=== PATIENT | female | born 2005 | race Caucasian/White ===

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

== ENCOUNTER 2024-08-04 01:27 | Emergency (ER) | payer OTHER, SELFPAY ==
[2024-08-04 01:27] VITALS: BP 111/47; PULSE 93; RESP 16; TEMP 36.1; O2SAT 100; BMI 17.2
--- NOTE | 2024-08-04 01:44 | EDS_ITS ---
HPI HPI - Female History of Present Illness Chief Complaint: Female C/O Informant: patient and parent Narrative Narrative: 18-year-old female healthy 1-2 days of intensely pruritic vaginal discomfort with some white discharge. Seen in urgent care and diagnosed clinically with a yeast infection I did not examine her and took some swabs for GC, chlamydia as she had been sexually active, and something else that they are unsure of. Pr esents tonight because it is just very itchy and she wants to know if she can do something for the itching. The prescription that was written will not be available for 2 more days because it is a holiday weekend. No recent antibiotics for anything. [facility] Medical History Acute sinusitis, unspecified URI (upper respiratory infection) Acute pharyngitis, unspecified Acute sinusitis, unspecified URI (upper respiratory infection) Home Medications ?Medication ?Instructions ?Recorded ?Last Taken ?Type miconazole nitrate 2 % vaginal 1 appful vaginal QHS 7 days #45 08/04/24 Unknown Rx cream (Miconazole-7) grams norgestimate 0.25 mg-ethinyl 1 tab PO DAILY 08/04/24 Unknown History estradiol 35 mcg tablet (Cherokee-Linyah) Allergy/AdvReac Type Severity Reaction Status Date / Time No Known Allergies Allergy Verified 08/04/24 01:28 Social History Smoking Status: Never smoker substance use type: does not use ROS ROS ED Constitutional Constitutional ED: Denies chills or fever(s) Genitourinary Genitourinary ED: Reports as per HPI and vaginal discharge; Denies dysuria, hematuria or vaginal bleeding EXAM Physical Exam Const Vital Signs: 08/04/24 01:27 Temperature 97 F L Temperature Source Temporal Pulse Rate 93 Respiratory Rate 16 Blood Pressure 111/47 L Blood Pressure Mean 68 Pulse Ox 100 Positive well nourished and well developed General Appearance ED: well developed and NAD Neck supple Resp normal respiratory effort GI normal to inspection, nondistended, normoactive bowel sounds, soft to palpation and non-tender Narrative: Nontender labia, normal-appearing external genitalia, no edema. No rash or lesions, rash the patient was referring to is in fact white discharge. Speculum Exam - Vagina: vaginal discharge white (Heterogeneous); Negative for vaginal bleeding Extremity normal to inspection and full ROM Neuro oriented x3 and CN's II-XII intact bilaterally Motor Exam: strength 5/5 throughout Psych mental status grossly normal Skin no rashes or lesions noted and no wounds MDM MDM MDM Narrative Medical decision making narrative: Exam is consistent with vaginal candidiasis. Prescription written. Patient and mother aware that these treatments are also available [id number]. Discharge Plan Triage Chief Complaint: Female C/O ED Provider: Lucian Roger Dx/Rx/DC Orders Clinical Impression: Candidiasis of vagina Instructions: ED LUZ VAGINITIS Prescriptions: New miconazole nitrate [Miconazole-7] 2 % cream 1 appful vaginal QHS 7 Days Qty: 45 0RF No Action norgestimate-ethinyl estradiol [Cherokee-Linyah] 0.25-35 mg-mcg tablet 1 tab PO DAILY Primary Care Provider: Mary Cheung Referrals: Maribell Galdamez MD [Med Staff - Active Staff] - 1 Week if not improving Mary Cheung MD [Primary Care Provider] - Print Language: Persian Disposition Disposition: Home, Self Care
[2024-08-04] MEDS: DiphenhydrAMINE 25 MG Capsule 50 MG PO (01:59)
== END 2024-08-04 02:09 | disposition home or self-care (01) ==
LOC: ED 01:57
PROVIDERS: Emergency Provider Emergency Medicine; PCP Pediatrics; Visit Provider Emergency Medicine
DX: B37.31 Acute candidiasis of vulva and vagina (principal)
CPT/HCPCS: 99282

== ENCOUNTER → 2025-02-04 | Outpatient (CLI) | payer SELFPAY | END | disposition home or self-care (01) | LOC: LABSPEC 15:07 | PROVIDERS: PCP Pediatrics; Referring Provider Dentist Oral and Maxillofacial Surgery; Visit Provider Dentist Oral and Maxillofacial Surgery | DX: T81.49XA Infection following a procedure, other surgical site, initial encounter (principal) | CPT/HCPCS: 87070; 87075; 87077; 87205 ==

== ENCOUNTER 2025-07-04 09:42 | Emergency (ER) | payer BC, SELFPAY ==
[2025-07-04 09:42] VITALS: BP 108/82; PULSE 96; RESP 16; TEMP 36.7; O2SAT 100; BMI 16.9
--- NOTE | 2025-07-04 10:07 | ED.VIS.GI ---
HPI HPI - GI History of Present Illness Chief Complaint: Abd Pain Narrative Narrative: Patient is a 19-year-old female presenting to the emergency department for left lower quadrant pain and constipation for the past 4 to 5 months. Patient states that the pain is unchanged and she had a bowel movement 2 days ago. States that she had an x-ray done when the pain started 4 to 5 months ago that showed constipation and was started on a bowel regimen including MiraLAX and Dulcolax daily. She stopped doing this over the past few weeks because she developed a yeast infection and thought it was due to this. States that since then the left lower quadrant abdominal pain has continued. Denies fever, chills, nausea or vomiting here. States that she had a small episode of emesis this morning but was able to drink afterwards. Denies any dysuria or hematuria. She is on her menstrual cycle at this time. She denies any abnormal vaginal bleeding or discharge. Denies the pain changing in type or pain scale since it started months ago. [facility] Medical History Contact with or exposure to other viral diseases Low back pain Abdominal pain Acute sinusitis, unspecified URI (upper respiratory infection) Acute pharyngitis, unspecified Acute sinusitis, unspecified URI (upper respiratory infection) Home Medications ?Medication ?Instructions ?Recorded ?Last Taken ?Type miconazole nitrate 2 % vaginal 1 appful vaginal QHS 7 days #45 08/04/24 Unknown Rx cream (Miconazole-7) grams norgestimate 0.25 mg-ethinyl 1 tab PO DAILY 08/04/24 Unknown History estradiol 0.035 mg tablet (Costilla-Linyah) Allergy/AdvReac Type Severity Reaction Status Date / Time No Known Allergies Allergy Verified 07/04/25 09:42 Social History Smoking Status: Never smoker substance use type: does not use ROS ROS ED ROS Narrative see HPI EXAM Physical Exam Narrative Exam Narrative: Vital signs: Reviewed General: Alert and orientedx3. No acute distress HEENT: Head is normocephalic and atraumatic, sinuses nontender, pupils equal round and reactive. Nares are patent. Oropharynx and throat exams normal. Neck: Supple without lymphadenopathy nontender Cardiovascular: Regular rate and rhythm, no murmurs. No rubs or gallops. Normal S1 and S2 Respiratory: Clear to auscultation bilaterally. No wheezes, rales, rhonchi Abdominal: Soft and nontender to palpation. Normal bowel sounds. No guarding or rebound. Nonsurgical abdomen Extremities: No tenderness. No bruising. Normal range of motion. Normal sensation. Skin: No rash or redness. The rest of the physical exam is unremarkable Const Vital Signs: 07/04/25 09:42 Temperature 98.1 F Temperature Source Oral Pulse Rate 96 Respiratory Rate 16 Blood Pressure 108/82 H Blood Pressure Mean 90 Pulse Ox 100 Oxygen Delivery Method Room Air MDM MDM MDM Narrative Medical decision making narrative: Patient is a 19-year-old female presenting to the emergency department for 4 to 5 months of constipation and left lower quadrant abdominal pain. Patient was seen and examined. Vitals are stable. Patient resting bed comfortably no acute distress. Given the pain and constipation has been present for 4 to 5-month I do not think the patient requires a CT at this time. The pain does not change in severity or type. Given it has been months of pain I do not think this is ovarian in pathology including ovarian torsion. She is currently on her menstrual cycle do not think this is related including ectopic. She has had no fevers and is having no active nausea or vomiting. Was able to tolerate p.o. this morning. Discussed bowel regimens extensively at bedside with patient and mother. Recommended mag citrate at home if she has been trying MiraLAX and Dulcolax. She did just have a bowel movement to days ago and is still passing gas I do not think she has an obstruction. Abdominal exam is unremarkable. Also recommended either suppository or enema at home if she does not have a bowel movement after the mag citrate. I did offer her a CT given her 1 episode of emesis this morning however low concern for any intra-abdominal pathology other than constipation. Patient and mother would like to try the at home measures first and if she develops any new or worsening symptoms they will return. Patient discharged from the Emergency Department. I do not feel that the patient's evaluation reveals any acute reason for admission at this time. I instructed them to either follow-up with their primary care physician or promptly return to the Emergency Department for reevaluation should symptoms worsen or new symptoms develop. I explained what symptoms would indicate the need to return to the emergency department. Shared decision making was used. The patient voiced understanding of the treatment plan and is agreeable with it. Clinical impression: LLQ abdominal pain constipation History & Record Review Discussion w/independent historian: Patient and Family Discharge Plan Triage Chief Complaint: Abd Pain ED Provider: Marina Monk Dx/Rx/DC Orders Prescriptions: No Action norgestimate-ethinyl estradiol [Costilla-Linyah] 0.25-35 mg-mcg tablet 1 tab PO DAILY miconazole nitrate [Miconazole-7] 2 % cream 1 appful vaginal QHS 7 Days Qty: 45 0RF Primary Care Provider: Mary Cheung Referrals: Mary Cheung MD [Primary Care Provider, Pediatrics] Print Language: German
[2025-07-04 10:39] VITALS: BP 110/70; PULSE 86; RESP 12; TEMP 36.8; O2SAT 99
== END 2025-07-04 10:40 | disposition home or self-care (01) ==
LOC: ED 10:22
PROVIDERS: Emergency Provider Student in an Organized Health Care Education/Training Program; PCP Pediatrics; Visit Provider Student in an Organized Health Care Education/Training Program
DX: R10.32 Left lower quadrant pain (principal); K59.00 Constipation, unspecified; R11.10 Vomiting, unspecified
CPT/HCPCS: 99282

== ENCOUNTER 2025-08-12 22:27 | Emergency (ER) | payer BC, SELFPAY ==
[2025-08-12 22:28] VITALS: BP 111/77; PULSE 77; RESP 13; TEMP 36.4; O2SAT 100; BMI 17.1
--- OUTSIDE RECORDS SUMMARY | 2025-08-12 22:55 | XMS RPT_ITS | CCD ---
Author Organization [facility] Inform ion [facility] Care Team Providers Care Chief Revenue Officer Name Role Phone Mary Cheung Primary Care Provider STEVEN Norton Attending Provider Jonatan HILARIO, Mary Primary Care Provider Jonatan HILARIO, Mary Primary Care Provider STEVEN Shen Attending Provider [phone] [place] DIE SET UP WORKER, DIE SET UP WORKER-Singh Rodriguez Attending Provider Jonatan HILARIO, Mary Primary Care Provider Dr. Mary Cheung MD Primary Care Provider Dr. Mary Cheung MD Referring Provider John Norton Attending Provider STEVO BOND MD Attending Provider STEVO BOND MD Referring Provider JONATAN, MARY Primary Care Unavailable JONATAN, MARY Primary Care Unavailable JONATAN, MARY Primary Care Unavailable JONATAN, MARY Primary Care Unavailable CAREY TOLBERT Attending Unavailable SEIFRIED, MARY Referring Unavailable JONATAN, MARY Primary Care Unavailable MARY LEMUS Attending Unavailable JONATAN, MARY Primary Care Unavailable SELF Referring Unavailable Jonatan, Mary Primary Care Unavailable STEVO BOND Referring Unavailable STEVO BOND Attending Unavailable Jonatan, Mary Primary Care Unavailable Marina Monk Attending Unavailable Jonatan, Mary Primary Care Unavailable Lucian Roger Attending Unavailable Jonatan, Mary Referring Unavailable Jonatan, Mary Primary Care Unavailable Dustin Shen Attending Unavailable Jonatan, Mary Referring Unavailable Jonatan, Mary Primary Care Unavailable John Norton Attending Unavailable Medications Current Medications Medication Drug Class(es) Dates Sig (Normalized) Sig (Original) benzoyl peroxide 50 mg/ml medicated liquid soap (14 sources) Start: 03-18-2016 Benzoyl Peroxide 5 % external wash Apply 1 application to affected area every morning. 1 Bottle 5 03/18/2016 Active Comment on above: Apply 1 application to affected area every morning. Ethinyl Estradiol / norgestimate (6 sources) Progestin, Estrogen Start: 08-23-2024 take 1 tablet by mouth once daily SPRINTEC 0.25-35 mg-mcg per tablet Take 1 tablet by mouth once daily. 08/23/2024 Active Start: 08-04-2024 Norgestimate-E thinyl Estradiol (Boyd-Linyah) 0.25-35 mg-mcg tablet Active 1 {tbl} PO DAILY August 04, 2024 1:00am fluconazole 150 mg oral tablet (2 sources) Azole Antifungal Start: 05-06-2025 End: 05-06-2025 take 1 tablet by mouth once fluconazole (DIFLUCAN) 150 mg tablet Take 1 tablet by mouth one time only for 1 dose. 1 tablet 05/06/2025 05/06/2025 Active Start: 08-25-2024 End: 08-25-2024 fluconazole (DIFLUCAN) 150 m g tablet Take 1 tablet by mouth one time only for 1 dose. , repeat dose in 3 days. 2 tablet 08/25/2024 08/25/2024 Active miconazole nitrate 20 mg/ml vaginal cream (3 sources) Azole Antifungal Start: 08-04-2024 Miconazole Ni trate (Miconazole-7) 2 % cream Active 1 NMA VAGINAL AT BEDTIME 45 7 August 04, 2024 1:00am Start: 08-03-2024 End: 08-06-2024 Miconazole Nitrate (MONISTAT 3) 200 mg/5 gram (4 %) crea Indications: Vaginal discharge Use 1 Applicator vaginally once daily for 3 days. 25 g 08/03/2024 08/06/2024 Active tretinoin 1 mg/ml topical cream (14 sources) Retinoid Start: 03-14-2016 tretinoin (RET IN-A) 0.1 % cream Indications: Acne, unspecified acne type Apply 1 application to affected area daily at bedtime. 60 g 3 03/14/2016 Active Comment on above: Apply 1 application to affected area daily at bedtime. Completed/Discontinued Medications Medication Drug Class(es) Dates Sig (Normalized) Sig (Original) amoxicillin 500 mg oral tablet (13 sources) Penicillin-class Antibacterial Start: 04-22-2024 End: 06-10-2024 take 1 tablet by mouth three times daily Amoxicillin 500 mg tablet Discontinued 500 mg PO THREE TIMES A DAY April 22, 2024 12:00am June 10, 2024 10:33am Start: 10-12-2020 End: 10-22-2020 take 1 capsule by mouth three times daily Amoxicillin 500 mg capsule Discontinued 500 mg PO THREE TIMES A DAY 30 October 12, 2020 1:00am October 21, 2020 1:00am October 22, 2020 1:03am Start: 10-13-2019 End: 10-23-2019 take 1000 mg by mouth twice daily Amoxicillin 400 mg/5 mL suspension for reconstitution Discontinued 1000 mg PO TWICE A DAY 250 October 13, 2019 1:00am October 22, 2019 1:00am October 23, 2019 1:08am Start: 12-19-2018 End: 12-29-2018 take 800 mg by mouth twice daily Amoxicillin 400 mg/5 mL suspension for reconstitution Discontinued 800 mg PO TWICE A DAY 200 December 19, 2018 12:00am December 28, 2018 12:00am December 29, 2018 12:09am amoxicillin 80 mg/ml / clavulanate 11.4 mg/ml oral suspension (3 sources) Penicillin-class Antibacterial Start: 11-14-2022 End: 11-24-2022 take 1 mL by mouth every twelve hours Amoxicillin-Pot Clavulanate 400-57 mg/5 mL suspension for reconstitution Discontinued 10 mL PO Q12H 200 November 14, 2022 12:00am November 23, 2022 12:00am November 24, 2022 12:05am Start: 11-14-2022 End: 11-24-2022 take 1 mL by mouth every twelve hours Amoxicillin-Pot Clavulanate Discontinued 10 ML PO Q12H 200 November 14, 2022 12:00am November 24, 2022 12:05am azithromycin 40 mg/ml oral suspension (4 sources) Macrolide Antimicrobial Start: 05-04-2021 End: 05-09-2021 Azithromycin 200 mg/5 mL suspension for reconstitution Discontinued 0 PO .COMPLEX 60 May 04, 2021 12:00am May 08, 2021 12:00am May 09, 2021 12:01am take 12.5 mL (500 mg) by mouth today (day 1), then 6.25 mL (250 mg) daily for 4 days (days 2-5) PO benzonatate 100 mg oral capsule (4 sources) Non-narcotic Antitussive Start: 05-04-2021 End: 04-02-2022 take 1 capsule by mouth three times daily as needed for cough Benzonatate 100 mg capsule Discontinued 100 mg PO THREE TIMES A DAY as needed for cough May 04, 2021 12:00am April 02, 2022 12:41pm cephalexin 50 mg/ml oral suspension (4 sources) Cephalosporin Antibacterial Start: 04-15-2020 End: 04-25-2020 take 500 mg by mouth twice daily Cephalexin 250 mg/5 mL suspension for reconstitution Discontinued 500 mg PO TWICE A DAY 200 April 15, 2020 12:00am April 24, 2020 12:00am April 25, 2020 12:02am hydrocortisone 10 mg/ml / neomycin 3.5 mg/ml / polymyxin b 39712 unt/ml otic suspension (3 sources) Aminoglycoside Antibacterial, Polymyxin-class Antibacterial, Corticosteroid Start: 04-14-2023 End: 04-24-2023 Neomycin-Polymyxin- Hc 3.5-10,000-1 mg/mL-unit/mL-% drops,suspension Discontinued 3 NMA OTIC Q4H 06 13April 14, 2023 12:00am April 23, 2023 12:00am April 24, 2023 12:03am apply to (cotton) wick; replace wick every 24 hours Start: 04-14-2023 Neomycin-Polym yxin-Hc Active 3 DRP OTIC Q4H 06 13April 14, 2023 12:00am apply to (cotton) wick; replace wick every 24 hours methylPREDNISolone 4 mg oral tablet (4 sources) Corticosteroid Start: 06-10-2024 End: 06-16-2024 take 1 tablet by mouth once Methylprednisolone (Medrol (Bruno)) 4 mg tablets,dose pack Discontinued 4 mg PO per package directions 22 02June 10, 2024 12:00am June 15, 2024 12:00am June 16, 2024 12:09am Start: 11-30-2022 End: 12-15-2022 take 1 tablet by mouth once Methylprednisolone (Medrol (Bruno)) 4 mg tablets,dose pack Discontinued 0 PO per package directions November 30, 2022 12:00am December 15, 2022 7:54am PO PER PKG DIR nitrofurantoin, macrocrystals 25 mg / nitrofurantoin, monohydrate 75 mg oral capsule (10 sources) Nitrofuran Antibacterial Start: 04-14-2023 End: 04-16-2023 take 1 capsule by mouth every twelve hours at mealtime Nitrofurantoin Monohyd/M-Cryst 100 mg capsule Discontinued 1 NMA PO Q12H 14 April 14, 2023 12:00am April 20, 2023 12:00am April 16, 2023 11:43am administer with a meal/food; swallow whole; do not open, crush, dissolve , or chew Start: 12-15-2022 End: 12-22-2022 take 1 capsule by mouth every twelve hours at mealtime Nitrofurantoin Monohyd/M-Cryst 100 mg capsule Discontinued 1 NMA PO Q12H 14 December 15, 2022 12:00am December 21, 2022 12:00am December 22, 2022 12:05am administer with a meal/food; swallow whole; do not open, crush, dissolve , or chew Start: 04-15-2020 End: 04-22-2020 take 1 capsule by mouth every twelve hours at mealtime Nitrofurantoin Monohyd/M-Cryst 100 mg capsule Discontinued 1 NMA PO Q12H 14 April 15, 2020 12:00am April 21, 2020 12:00am April 22, 2020 12:02am administer with a meal/food; swallow whole; do not open, crush, dissolve , or chew ofloxacin 3 mg/ml ophthalmic solution (3 sources) Quinolone Antimicrobial Start: 04-02-2022 End: 08-06-2022 Ofloxacin 0.3 % drops Discontinued 0 OPHTHALMIC .COMPLEX April 02, 2022 12:00am August 06, 2022 2:12pm put 1-2 drps into affected eye(s) every 2-4 h x 2 days, then 1-2 drps 4 times/day days 3-7 ophthalmic (eye) Start: 04-02-2022 End: 08-06-2022 Ofloxacin Discontinued 0 OPH THALMIC .COMPLEX April 02, 2022 12:00am August 06, 2022 2:12pm put 1-2 drps into affected eye(s) every 2-4 h x 2 days, then 1-2 drps 4 times/day days 3-7 ophthalmic (eye) phenazopyridine hydrochloride 100 mg oral tablet (6 sources) Start: 12-15-2022 End: 04-22-2024 take 1 tablet by mouth three times daily at mealtime for pain Phenazopyridine (Pyridium) 100 mg tablet Discontinued 100 mg PO THREE TIMES A DAY as needed for pain 7 April 14, 2023 12:00am April 22, 2024 7:43am administer with a full glass of water after each meal sulfamethoxazole 800 mg / trimethoprim 160 mg oral tablet (3 sources) Dihydrofolate Reductase Inhibitor Antibacterial, Sulfonamide Antimicrobial Start: 04-16-2023 End: 04-19-2023 Sulfamethoxazole-Tr imethoprim (Bactrim Ds) 800-160 mg tablet Discontinued 1 {tbl} PO TWICE A DAY 6 3 April 16, 2023 12:00am April 18, 2023 12:00am April 19, 2023 12:04am triamcinolone acetonide 0.055 mg/actuat metered dose nasal spray (1 source) Corticosteroid Start: 06-10-2024 End: 08-04-2024 Triamcinolone Acetonide (Nasacort) 55 mcg aerosol,spray Discontinued 2 NMA INTRANASAL daily 16.9 June 10, 2024 12:00am August 04, 2024 2:28am administer into each nostril Problems Active Problems Problem Classification Problem Date Documented Da te Episodic/Chronic Abdominal pain (3 sources) Abdominal pain; Translations: [Unspecified abdominal pain] Onset: 07-15-2025 10-16-2024 Episodic Acute bronchitis (4 sources) Acute bronchitis; Translations: [Acute bronchitis, unspecified] 05-04-2021 Episodic Administrative/social admission (1 source) Patient encounter status; Translations: [Encounter for pre-employment examination] 07-19-2024 Episodic Cardiac dysrhythmias (2 sources) Palpitations; Translations: [Palpitations] 04-20-2023 Episodic Genitourinary symptoms and ill-defined conditions (9 sources) Dysuria; Translations: [Dysuria] Onset: 05-06-2025 04-14-2023 Episodic Immunizations and screening for infectious disease (7 sources) Contact with and (suspected) exposure to other viral communicable diseases; Translations: [Contact with or suspected exposure to other viral communicable disease] Episodic Inflammation; infection of eye (except that caused by tuberculosis or sexually transmitteddisease) (3 sources) Internal hordeolum; Translations: [Hordeolum internum left eye, unspecified eyelid] 04-02-2022 Episodic Inflammatory diseases of female pelvic organs (1 source) Acute vaginitis; Translations: [Acute vaginitis] 08-25-2024 Episodic Mycoses (1 source) Candidiasis of vagina; Translations: [Candidiasis of vagina] 08-12-2024 Episodic Nonspecific chest pain (3 sources) Chest pain; Translations: [Chest pain, unspecified] 04-20-2023 Episodic Other ear and sense organ disorders (3 sources) Pain of ear structure; Translations: [Otalgia, bilateral] 11-30-2022 Episodic Other female genital disorders (1 source) Vaginal discharge; Translations: [Other specified noninflammatory disorders of vagina] 08-03-2024 Episodic Other female genital disorders (1 source) Pruritus of vagina; Translations: [Other specified noninflammatory disorders of vagina] 05-06-2025 Episodic Other gastrointestinal disorders (1 source) Constipation - functional; Translations: [Chronic idiopathic constipation] 05-01-2025 Chronic Other gastrointestinal disorders (1 source) Chronic idiopathic constipation; Translations: [Functional constipation] Onset: 05-01-2025 Chronic Other upper respiratory infections (20 sources) Acute frontal sinusitis; Translations: [Acute frontal sinusitis, unspecified] Episodic Otitis media and related conditions (8 sources) Otitis media; Translations: [Otitis media, unspecified, unspecified ear] 10-13-2019 Episodic Spondylosis; intervertebral disc disorders; other back problems (2 sources) Low back pain; Translations: [Low back pain] 10-16-2024 Episodic Urinary tract infections (4 sources) Urinary tract infectious disease; Translations: [Urinary tract infection, site not specified] 04-15-2020 Episodic Viral infection (1 source) Viral disease; Translations: [Viral infection, unspecified] 10-18-2024 Episodic Past or Other Problems Problem Classification Problem Date Documented Date Episodic/Chronic Attention-deficit, conduct, and disruptive behavior disorders (10 sources) Attention deficit hyperactivity disorder; Translations: [Attention-deficit hyperactivity disorder, unspecified type] Onset: 05-15-2013 Resolved: 12-03-2015 12-03-2015 Chronic Complications of surgical procedures or medical care (1 source) Infection following a procedure, other surgical site, initial encounter; Translations: [Infection following a procedure, other surgical site, initial encounter] Onset: 02-08-2025 Episodic Other female genital disorders (2 sources) Other specified noninflammatory disorders of vagina; Translations: [Vaginal itching] Onset: 09-05-2024 Episodic Residual codes; unclassified (1 source) Pain, unspecified; Translations: [Pain, unspecified] Onset: 10-16-2024 Episodic Results Test Name Value Interpretation Reference Range Facility Emergency Department Summary on 07-04-2025 Emergency Department Summary [facility] Medical Records Department [address] [place] [address] Emergency Department Summary 07/04/25 MR#: [id number] Acct: [id number] Name: NANCY DALEY Rep #: [id number] : 2005 19 From: Marina Monk MD PCP: Dr. Mary Cheung MD Status:PRE ER Location: ED HPI HPI - GI History of Present Illness Chief Complaint: Abd Pain Narrative Narrative: Patient is a 19-year-old female presenting to the emergency department for left lower quadrant pain and constipation for the past 4 to 5 months. Patient states that the pain is unchanged and she had a bowel movement 2 days ago. States that she had an x-ray done when the pain started 4 to 5 months ago that showed constipation and was started on a bowel regimen including MiraLAX and Dulcolax daily. She stopped doing this over the past few weeks because she developed a yeast infection and thought it was due to this. States that since then the left lower quadrant abdominal pain has continued. Denies fever, chills, nausea or vomiting here. States that she had a small episode of emesis this morning but was able to drink afterwards. Denies any dysuria or hematuria. She is on her menstrual cycle at this time. She denies any abnormal vaginal bleeding or discharge. Denies the pain changing in type or pain scale since it started months ago. [facility] Medical History Contact with or exposure to other viral diseases Low back pain Abdominal pain Acute sinusitis, unspecified URI (upper respiratory infection) Acute pharyngitis, unspecified Acute sinusitis, unspecified URI (upper respiratory infection) Home Medications ???Medication ???Instructions ???Recorded ???Last Taken ???Type miconazole nitrate 2 % vaginal 1 appful vaginal QHS 7 days #45 Unknown Rx cream (Miconazole-7) grams norgestimate 0.25 mg-ethinyl 1 tab PO DAILY 08/04/24 Unknown Hi story estradiol 0.035 mg tablet (Boyd-Linyah) Allergy/AdvReac Type Severity Reaction Status Date / Time No Known Allergies Allergy Verified 07/04/25 09:42 Social History Smoking Status: Never smoker substance use type: does not use ROS ROS ED ROS Narrative see HPI EXAM Physical Exam Narrative Exam Narrative: Vital signs: Reviewed General: Alert and orientedx3. No acute distress HEENT: Head is normocephalic and atraumatic, sinuses nontender, pupils equal round and reactive. Nares are patent. Oropharynx and throat exams normal. Neck: Supple without lymphadenopathy nontender Cardiovascular: Regular rate and rhythm, no murmurs. No rubs or gallops. Normal S1 and S2 Respiratory: Clear to auscultation bilaterally. No wheezes, rales, rhonchi Abdominal: Soft and nontender to palpation. Normal bowel sounds. No guarding or rebound. Nonsurgical abdomen Extremities: No tenderness. No bruising. Normal range of motion. Normal sensation. Skin: No rash or redness. The rest of the physical exam is unremarkable Const Vital Signs: 07/04/25 09:42 Temperature 98.1 F Temperature Source Oral Pulse Rate 96 Respiratory Rate 16 Blood Pressure 108/82 H Blood Pressure Mean 90 Pulse Ox 100 Oxygen Delivery Method Room Air MDM MDM MDM Narrative Medical decision making narrative: Patient is a 19-year-old female presenting to the emergency department for 4 to 5 months of constipation and left lower quadrant abdominal pain. Patient was seen and examined. Vitals are stable. Patient resting bed comfortably no acute distress. Given the pain and constipation has been present for 4 to 5-month I do not think the patient requires a CT at this time. The pain does not change in severity or type. Given it has been months of pain I do not think this is ovarian in pathology including ovarian torsion. She is currently on her menstrual cycle do not think this is related including ectopic. She has had no fevers and is having no active nausea or vomiting. Was able to tolerate p.o. this morning. Discussed bowel regimens extensively at bedside with patient and mother. Recommended mag citrate at home if she has been trying MiraLAX and Dulcolax. She did just have a bowel movement to days ago and is still passing gas I do not think she has an obstruction. Abdominal exam is unremarkable. Also recommended either suppository or enema at home if she does not have a bowel movement after the mag citrate. I did offer her a CT given her 1 episode of emesis this morning however low concern for any intra-abdominal pathology other than constipation. Patient and mother would like to try the at home measures first and if she develops any new or worsening symptoms they will return. Patient discharged from the Emergency Department. I do not f (more content not included)... Normal [facility] BACTERIAL VAGINOSIS NAATon 0 05-06-2025 Interpretation and review of laboratory results Normal [facility] Lactobacillus crispatus+gasseri+jenseni i + Gardnerella vaginalis + Atopobium vaginae rRNA SHAILA+probe Ql (Vag fld) Not detected Not detected [facility] Lactobacillus crispatus+gasseri+jenseni i + Gardnerella vaginalis + Atopobium vaginae rRNA SHAILA+probe Ql (Vag fld) Not detected Normal Not detected [facility] Comment on above: Order Comment: Speci men Type: SWABOrdering Facility: [facility] Address: [address] [place] [address] Performed By: #### C VTV, BVAMP ####[facility] LABCLIA [id number] [address] [place] Bacteria Ur Culton Bacteria identified Cx Nom (U) ORGANISM ID: 1 10,000 -<50,000 CFU/ml Normal urogenital aixa Normal [facility] Comment on above: Performed By: #### 6 30-4 ####[facility] LABCLIA [id number] [place] [address] [facility] [place] LUZ/TRICHOMONAS NAATon 0 05-06-2025 C. glabrata RNA SHAILA+probe Ql (Vag fld) Not detected Normal Not detected [facility] Comment on above: Order Comment: Speci men Type: SWABOrdering Facility: [facility] Address: [address] [place] [address] Performed By: #### C VTV, BVAMP ####[facility] LABCLIA [id number] [address] [place] Luz sp DNA SHAILA+probe Ql (Vag fld) Detected Abnormal Not detected [facility] Comment on above: Order Comment: Speci men Type: SWABOrdering Facility: [facility] Address: [address] [place] [address] Performed By: #### C VTV, BVAMP ####[facility] LABCLIA [id number] [address] [place] T. vaginalis DNA SHAILA+probe Ql (Unsp spec) Not detected Normal Not detected [facility] Comment on above: Order Comment: Speci men Type: SWABOrdering Facility: [facility] Address: [address] [place] [address] Performed By: #### C VTV, BVAMP ####[facility] LABCLIA [id number] [place] [address] [place] CNOVon 05-06-2025 CNOV Office Visit ([facility]) ---- NANCY DALEY ([id number]) 04 F UPA Date Time Provider Department 05/06/25 11:00 AM CAREY TOLBERT During your visit today, we recorded the following information about you: Temperature Pulse Respiration Blood pressure 98.8 degrees 110/minute 16/minute 102/60 Weight 37.8 kg Carey Tolbert APRN.CLOTH INSPECTOR 05/06/2025 11:24 AM Signed [facility] Subjective Nancy Daley is a 19 year old female. Patient presents with: Urinary Problem: burning with urination x this am, has had diarrhea, ? yeast also HPI The patient is a 19-year-old female presenting with dysuria and vulvar discomfort. Dysuria and Vulvar Discomfort: - Onset today. - Burning sensation during urination and while sitting. - Localized discomfort to the inside and possibly the opening of the vagina. - Noted redness; denies pruritus. - No discharge observed today. - Denies unprotected sexual intercourse. - History of yeast infection in August of last year, treated with Monistat. - Denies history of bacterial vaginosis. - Currently using Miralax for constipation management. Review of Systems Gastrointestinal: (+) constipation Genitourinary: (+) dysuria, (+) vaginal pruritus, (+) vulvar erythema, (-) vaginal discharge Objective BP 102/60 Pulse 110 Temp 37.1 ?C (98.8 ?F) Resp 16 Wt 37.8 kg (83 lb 5.3 oz) LMP 04/10/2025 (Approximate) SpO2 96% BMI 16.36 kg/m? Physical Exam General: No acute distress. Resp: Lungs clear to auscultation bilaterally. Abd: No tenderness to palpation. { 1. Burning with urination (R30.0) 2. Vaginal itching (N89.8) - Acute onset of dysuria and vaginal pruritus with erythema; no discharge noted today. - Previous similar episode diagnosed as yeast infection in August of last year. - No reported unprotected sexual activity; low risk for STDs. - Differential includes yeast infection, bacterial vaginosis, and UTI. - Urinalysis does not indicate UTI; urine culture ordered to confirm. - Vaginal swab obtained for yeast, bacterial vaginosis, and trichomonas testing. - Discussed differences in treatment for yeast infection vs. bacterial vaginosis; patient agreed to testing for both. - Start single-dose oral antifungal treatment. - Advised that if cultures are positive for bacterial vaginosis or other infections, appropriate antibiotics will be added. - Educated on potential causes of yeast infections and advised to seek RESEARCH AND DEVELOPMENT RESEARCHER evaluation if infections become more frequent. and Recording using Sympler software for draft documentation of the visit was discussed with the patient/authorized circulation sales representative; all questions welcomed and answered. Patient/authorized circulation sales representative agreed to proceed MDM Procedures Allergies As of Date: 05/06/2025 (No Known Allergies) Date Reviewed: 05/06/2025 Reviewed by: Mary Osman MA - Fully Assessed Reason for Visit: Urinary Problem [252] Cmt: burning with urination x this am, has had diarrhea, ? yeast also Primary Visit Diagnosis:Burning with urination [R30.0] Other Visit Diagnosis:Vaginal itching [N89.8] Order(s):UA DIP, URINE (POC) [5611229] Order #: [id number]. #:[id number] BACTERIAL CULTURE, URINE [SQURCUL] Order #: [id number]. #:[id number] BACTERIAL VAGINOSIS NAAT [SQBVAMP] Order #: [id number]. #:[id number] LUZ/TRICHOMONAS NAAT [SQCVTV] Order #: [id number]. #:[id number] fluconazole (DIFLUCAN) 150 mg tabletTake 1 tablet by mouth one time only for 1 dose.Disp: 1 tabletRfl: 0 Prescriptions as of 05/06/2025 - fluconazole (DIFLUCAN) 150 mg tablet Take 1 tablet by mouth one time only for 1 dose. - SPRINTEC 0.25-35 mg-mcg per tablet Take 1 tablet by mouth once daily. - Benzoyl Peroxide 5 % external wash Apply 1 application to affected area every morning. - tretinoin (RETIN-A) 0.1 % cream Apply 1 application to affected area daily at bedtime. Problem List As Of Date 05/06/2025 Noted Resolved ADHD (attention deficit hyperactivity disorder)* 3 12/03/2015 Prescriptions ordered this encounter Disp Refills Start End FLUCONAZOLE 150 MG TABLET 1 ta* 0 05/06/2025 05/06/2025 Route: PO Sig: Take 1 tablet by mouth one time only for 1 dose. Encounter Status:Closed by CAREY TOLBERT on 05/06/25 Normal [facility] UA DIP, URINE (POC)on 2024 BILIRUBIN UA (POCT) Moderate Abnormal Negative [facility] CLARITY UA (POCT) Slightly Cloudy Cl [facility] COLOR UA (POCT) Dark yellow [facility] GLUCOSE UA (POCT) Negative Negative mg/dL [facility] Hemoglobin Ql (U) Negative Negative [facility] Interpretation and review of laboratory results Abnormal [facility] KETONE UA (POCT) 80 mg/dL Abnormal Negative [facility] LEUKOCYTES UA (POCT) Negative Negative [facility] NITRITE UA (POCT) Negative Negative [facility] PH UA (POCT) 6.0 4.5 - 8.0 [facility] Protein Ql (U) 30 mg/dL Abnormal Negative [facility] SPECIFIC GRAVITY UA (POCT) >=1.030 1.005 - 1.030 [facility] UROBILINOGEN UA (POCT) 0.2 Qiana l E.U./dL [facility] Location:[address], [id number] [place] [address] POINT OF CARE [facility] CNOVon 05-01-2025 CNOV Office Visit (PEDSWS) ---- NANCY DALEY ([id number]) 3 F UPA Date Time Provider Department 05/01/25 10:00 AM MARY LEMUS During your visit today, we recorded the following information about you: Temperature Pulse Respiration Blood pressure 97.5 degrees 96/minute 16/minute 118/70 Weight Height Last Period 37.9 kg 1.52 m 04/10/25 Mary Lemus MD 05/23/2025 12:17 AM Signed PEDIATRIC SICK VISIT SUBJECTIVE: Nancy Daley is a 19 year old accompanied by mother. She has been having issues with constipation since December. She has been seen at the [facility]. Mother felt it this morning. She still hasn't gone normally. She went 2 days ago and hasn't gone since. Stools are Irvona 1-2. She has seen mucus but denies blood. It is hard to pass the stool and only a small amount comes out. She went a week once without anything. LLQ lump. She eats [employer], [employer]. She has slowed down since she has had this issue. She works second shift. She is eating 2-3 meals a day. She usually doesn't eat meat unless it is in a taco. She eats a lot of carbohydrates. Mother has been trying to give her celery juice. She was struggling to get urine out for a little but now she is able to get the urine out normally. She gets bad cramps with her periods but she denies heavy bleeding. She used to be on OCP but not currently. She does get nauseated from the belly pain and vomited once. No family history of Crohn's Disease, UC, Colon Cancer. No known paternal side history. History was obtained from: patient and EMR Nancy Daley is a 19-year-old female, accompanied by her mother, presenting with a palpable abdominal mass and constipation. Nancy reports a hard, painful mass in the lower left abdomen, described as causing significant pressure and resembling an air bubble. The mass was first noticed in December, coinciding with the onset of constipation. Nancy's mother palpated the mass for the first time this morning. Nancy has been experiencing constipation since December, with bowel movements occurring every few days. Recently, she went a week without a bowel movement, necessitating the use of suppositories. Her stools are described as hard, small, round balls, with occasional mucus but no blood. She denies a history of constipation prior to December. She has been using Miralax 17 grams, sometimes twice daily, without significant improvement. She has also been taking stool softener gummies and celery juice, which have provided some relief. She denies taking any other supplements or vitamins. Nancy has a diet high in carbohydrates and low in protein, with frequent consumption of fast food. She is a vegetarian, consuming minimal meat. She reports a decreased appetite and sometimes avoids eating due to fear of exacerbating her symptoms. She denies any issues with urination. Nancy has a history of dysmenorrhea, with regular menstrual cycles and no current use of control. She experienced one episode of emesis due to abdominal pain when she was really backed up. She denies any family history of Crohn's disease, ulcerative colitis, or colon cancer. HISTORY: ACTIVE PROBLEM LIST (none) - all problems resolved or deleted PAST MEDICAL HISTORY Diagnosis Date NEGATIVE MEDICAL HISTORY PMH - PAST MEDICAL HISTORY OF 05/24/10 normal color vision PAST SURGICAL HISTORY Procedure Laterality Date NONE Allergies: ALLERGIES No Known Allergies Medications: SPRINTEC 0.25-35 mg-mcg per tablet Take 1 tablet by mouth once daily. (Patient not taking: Reported on 05/01/2025) Benzoyl Peroxide 5 % external wash Apply 1 application to affected area every morning. (Patient not taking: Reported on 05/01/2025) tretinoin (RETIN-A) 0.1 % cream Apply 1 application to affected area daily at bedtime. (Patient not taking: Reported on 05/01/2025) OBJECTIVE: BP 118/70 Pulse 96 Temp 36.4 ?C (97.5 ?F) (Temporal Artery) Resp 16 Ht 152 cm (4' 11.84) Wt 37.9 kg (83 lb 8.9 oz) LMP 04/20/2025 (Approximate) BMI 16.40 kg/m? Constitutional: Well-nourished, in no acute distress Head: Normocephalic, atraumatic Eyes: Normal appearing eyes and eyelids Ears: Tympanic membranes clear Nose: No nasal congestion Throat/Oral: Oropharynx clear without erythema or edema, mucous membranes moist Neck: Supple, no significant lymphadenopathy Cardiovascular: Regular rate and rhythm, no murmurs Respiratory: Clear to auscultation bilaterally, comfortable work of breathing Chest: Normal shape and expansion Gastrointestinal: Soft, with mild tenderness in the lower left quadrant, palpable mass in the lower left quadrant, non-distended, no guarding Neurology: Normal strength, normal tone Dermatology: No significant rash Psychological: Normal mood, normal affect ASSESSMENT/PLAN: Encounter Diagnosis ICD-10-CM (more content not included)... Normal [facility] XR ABDOMEN 1V SUPINEon 05-01 XR ABDOMEN 1V SUPINE * * *Final Report* * * DATE OF EXAM: May 01 2025 11:05AM WOX [id number] - XR ABDOMEN 1V SUPINE / PROCEDURE REASON: Functional constipation * * * * Physician Interpretation * * * * XR ABDOMEN 1V SUPINE: HISTORY: Indication: Functional constipation TECHNIQUE: Views obtained: XR ABDOMEN 1V SUPINE Comparison: NONE. RESULT: Findings: No abnormal calcifications are seen. The bowel gas pattern is nonspecific and unremarkable.. No bony abnormalities are seen. Fecal debris noted throughout the ascending, transverse, and upper descending colon. IMPRESSION: 1. Moderate fecal burden.. Tribal Judge: ALLI Transcribe Date/Time: May 02 2025 1:57P Dictated by : WALKER IRVIN MD This examination was interpreted and the report reviewed and electronically signed by: WALKER IRVIN MD on May 02 2025 2:01PM EST [id number] ACN Normal [facility] Culture, Anaerobic [facility] 02-14-2025 CUAN INFECTED EXTRACTION SITE #1 Studies Have Confirmed That B. Fragilis Group are Routinely Susceptible to: Metronidazole, Piperacillin/Tazoba ctam, Amoxicillin/Clavula juju acid, and Ertapenem. They are showing an increased RESISTANCE to Penicillin, Clindamycin and Moxifloxacin. Bacteria Spec Anaerobe Cult Bacteria Spec Anaerobe Cult #2 Prevotella and Porphyromonas species are generally SUSCEPTIBLE to Cefoxitin, Chloramphenicol, and Metronidazole and are usually RESISTANT to Penicillin. Bacteria Spec Anaerobe Cult Copy of report sent to Infection Control Printer [id number] 02/14/25 1042 ASNEVANGELIST. Bacteria Spec Anaerobe Cult Bacteria Spec Anaerobe Cult Bacteroides pyogenes Beta Lactamase-Reportabl e Positive Prevotella oralis Beta Lactamase-Reportabl e Positive Normal [facility] Comment on above: Performed By: #### M 100.4001, M100.3000, M100.2000 #### [facility] [address] [place], [address] Wound Cultureon 02-12-2025 WC INFECTED EXTRACTION SITE #2 Previously Actinomyces odontolyticus. Susceptibility not normally performed on this organism. Wound Culture #4,5 Susceptibility not normally performed on this organism. Streptococcus mitis/ oralis Amount Growth 2+ Schaalia odontolyticus Schaalia odontolyticus HPARA Amount Growth 2+ Haemophilus parainfluenzae ANAE Amount Growth Rare NSUB Amount Growth 1+ Actinomyces naeslundii Streptococcus mitis/ oralis: REACTION Ampicillin Islt KYLE 4 I Neisseria sicca/subflava Cefotaxime Islt KYLE <=0.12 cefTRIAXone Islt KYLE <=0.12 S Linezolid Islt KYLE <=2 Vancomycin Islt KYLE 0.5 S Normal [facility] Comment on above: Performed By: #### M 100.4001, M100.3000, M100.1999 #### [facility] [address] [facility] [address] [place], [place], [address] Gram Stainon 02-05-2025 GS INFECTED EXTRACTION SITE Gram Stain 2+ Gram positive rods 2+ White Blood Cells 1+ Gram positive cocci No Epithelial cells Normal [facility] Comment on above: Performed By: #### M 100.4001, M100.3000, M100.1999 #### [facility] [address] [place], [place], [address] Gram stainOrdered By: STEVO KILGORE on 02-04-2025 Microscopic observation Gram stain Nom (Unsp spec) [facility] CNOVon 10-18-2024 CNOV Office Visit (UCWSTR) ---- NANCY DALEY ([id number]) 3 F UPA Date Time Provider Department 10/18/24 8:30 AM GRIFFIN BENTON [facility] During your visit today, we recorded the following information about you: Temperature Pulse Respiration Blood pressure 97.7 degrees 109/minute 20/minute 116/88 Weight Last Period 40 kg 10/18/24 Griffin Benton APRN.CLOTH INSPECTOR 10/18/2024 9:23 AM Signed Subjective HPI Patient presents to urgent care with chief complaint of upper respiratory tract like infection. Duration of symptoms 2 days. Associated symptoms sore throat, nasal congestion, nasal discharge and nonproductive cough. Patient denies the use of any [id number]-[id number] medications or home remedies for symptom management. Patient states recent sick contacts with similar signs and symptoms. Patient denies any productive cough, fever, chest pain, shortness of breath, pleuritic pain, rash, abdominal pain, nausea, vomiting or change in bowel or bladder habit. Past medical history prescription medications allergies reviewed. .Patient presents with: Fever: Cough, SOB, ears clogged, bodyaches, headache, sore throat x 2 days PAST MEDICAL HISTORY Diagnosis Date NEGATIVE MEDICAL HISTORY PMH - PAST MEDICAL HISTORY OF 05/24/10 normal color vision PAST SURGICAL HISTORY Procedure Laterality Date NONE ALLERGIES Patient has no known allergies. MEDICATIONS SPRINTEC 0.25-35 mg-mcg per tablet Take 1 tablet by mouth once daily. Benzoyl Peroxide 5 % external wash Apply 1 application to affected area every morning. (Patient not taking: Reported on 10/18/2024) tretinoin (RETIN-A) 0.1 % cream Apply 1 application to affected area daily at bedtime. (Patient not taking: Reported on 10/18/2024) FAMILY HISTORY Problem Relation Age of Onset Hypertension Maternal Grandmother Social History Tobacco Use Smoking status: Never Passive exposure: Never Smokeless tobacco: Never BP 116/88 Pulse 109 Temp 36.5 ?C (97.7 ?F) Resp 20 Wt 40 kg (88 lb 2.9 oz) LMP 10/18/2024 (Exact Date) SpO2 99% Review of Systems Constitutional: Positive for chills, fever and malaise/fatigue. HENT: Positive for congestion and sore throat. Negative for ear discharge, ear pain and sinus pain. Eyes: Negative for blurred vision, pain, discharge and redness. Respiratory: Positive for cough. Negative for hemoptysis, sputum production, shortness of breath, wheezing and stridor. Cardiovascular: Negative for chest pain. Gastrointestinal: Negative for abdominal pain, diarrhea, nausea and vomiting. Musculoskeletal: Positive for myalgias. Skin: Negative for itching and rash. Neurological: Positive for headaches. Negative for dizziness. Objective Physical Exam HENT: Head: Normocephalic. Jaw: No trismus, tenderness, swelling or pain on movement. Left Ear: Ear canal normal. Nose: Congestion present. Mouth/Throat: Mouth: Mucous membranes are moist. Pharynx: Oropharynx is clear. Uvula midline. No oropharyngeal exudate or posterior oropharyngeal erythema. Eyes: Pupils: Pupils are equal, round, and reactive to light. Cardiovascular: Rate and Rhythm: Normal rate. Pulmonary: Effort: Pulmonary effort is normal. No accessory muscle usage, respiratory distress or retractions. Breath sounds: No stridor. No wheezing, rhonchi or rales. Abdominal: Palpations: Abdomen is soft. Tenderness: There is no abdominal tenderness. There is no guarding or rebound. Musculoskeletal: Cervical back: No erythema or tenderness. No pain with movement. Normal range of motion. Lymphadenopathy: Cervical: No cervical adenopathy. Neurological: General: No focal deficit present. Mental Status: She is alert and oriented to person, place, and time. Mental status is at baseline. ASSESSMENT/PLAN: 1. Viral illness - ICD9: 079.99, ICD10: B34.9 - Discussed viral etiology and rationale for treatment. - Symptomatic treatment with prn analgesia - Supportive care with fluids and rest - COVID AND INFLUENZA A/B AND RSV PCR, ROUTINE Patient was educated on supportive therapies. Patient will follow up with primary care provider as needed. Patient was instructed to immediately proceed to emergency room for any new, worsening, or symptoms lasting longer than anticipated. The patient's clinical presentation is otherwise unremarkable at this time. Based on exam and clinical finding, the patient is stable for discharge. Plan of care was discussed with patient. Patient verbalizes understanding and agrees to plan of care. This note was generated using Great[employer] software. It may contain errors in wording, punctuation, or spelling. Griffin Benton APRN.Griffin Snow APRN.MILENA 10/18/2024 8:51 AM Signed How to Manage Common Symptoms Associated with COVID for Adults Fever- Fever is a temperature over 100.4 F and can occur when the body is fighti (more content not included)... Normal [facility] Panel InformationOrdered By: John Posey on 10-16-2024 Influenza Types A,B Rapid (Clinic) Negative [facility] Urgent Care Visit Reporton 0 10-16-2024 Urgent Care Visit Report [facility] [address], [address] [place] [address] OFFICE VISIT Date of Service: 10/16/24 MR#: [id number] Acct: [id number] Name: NANCY DALEY EDITH Rep #: [id number] : 2005 Provider: STEVEN Zhao Age/Sex: 19/F Location: [facility] Status: Signed Intake Vital Signs 08/04/24 01:27 10/16/24 13:19 Height 4 ft 11 in BP 92/60 Blood Pressure Location Lt brachial Position Sitting Respiration 14 Pulse 83 Pulse Source NIBP Temp 98.1 F Temp Source Oral Pulse Oximetry (%) 98 Oxygen Delivery Method room air Intake Visit Reasons: ABD PAIN, LOW BACK PAIN Chief Complaint: abd pain/back pain, BA, ST Underwriting Consultant Required: No Is patient in pain?: Yes Allergies No Known Allergies Allergy (Verified 10/16/24 13:23) Is last menstrual period known: No Post menopausal: No Patient : No Have you fallen in the past year?: No Nurse's Note: abd pain/back pain, BA, ST since this morning. mother requesting flu test and work note only. attempted to get urine dip as well but pt could not urinate. denies fever [facility] Medical History (Updated 10/16/24 @ 13:36 by John HARRIS, PA) Contact with or exposure to other viral diseases Low back pain Abdominal pain Acute sinusitis, unspecified URI (upper respiratory infection) Acute pharyngitis, unspecified Acute sinusitis, unspecified URI (upper respiratory infection) Social History Smoking Status: Never smoker substance use type: does not use HPI HPI Chief Complaint: abd pain/back pain, BA, ST Details: NANCY DALEY, is a 19 F who presents to the office today for initial evaluation approximately 24 to 48-hour history of moderate abdominal pain and low back pain with myalgias and sore throat. Mom suspicious is due to her new control medications that she has recently started. No complaints of fever, chills, sweats, lightheadedness/diz ziness, nausea/vomiting, dysuria/urinary frequency/suprapubi c pressure, or chest pain/shortness of breath/dyspnea on exertion. Requesting POC screening for influenza only, declining POC screening for COVID-19 and streptococcal pharyngitis. ROS Const Constitutional: No other (As above) Exam Const General: cooperative, healthy appearing and no acute distress Nutritional Appearance: average body habitus Orientation: alert and awake [facility] Head: normal to inspection Ears: hearing grossly normal bilaterally, external ears normal, TM's normal bilaterally and EAC's normal Nose: external nose normal, nares normal, septum normal and no nasal discharge Face and sinus: normal facial exam, sinuses nontender and face symmetric Mouth: oral mucosae normal, lip normal, tongue normal, oropharynx normal and moist mucous membranes Throat: posterior oropharynx normal, tonsils normal, uvula midline and no postnasal drainage Eyes General: appearance normal, both eyes and all related structures Neck Neck: normal visual inspection, full ROM, no lymphadenopathy, no meningeal signs and supple Neck mass: No Thyroid: thyroid normal Lymphatic: no lymphadenopathy noted Chest Chest palpation inspection: normal inspection of the chest Resp Effort Inspection: normal respiratory effort and able to speak in complete sentences Auscultation: Bilateral: Clear to Auscultation Cardio Palpation: normal PMI Rate: regular rate Rhythm: regular rhythm Heart Sounds: S1 normal, S2 normal, no gallops, no murmurs and no rubs Pulses: radial pulses present GI Inspection: normal to inspection Palpation: soft General: No CVA tenderness Skin General: no rashes or lesions noted Neuro General: patient alert and patient awake Cognition: normal cognition Speech: speech normal Psych Appearance: grossly normal Mental Status: mental status grossly normal Mood: congruent mood Affect: normal affect Speech and Movement: speech and movement normal Attitude: cooperative Results POC FLU A B Office Flu A B Negative FLU A B Last Edit by Viviane Tolbert on 10/16/24 13:27 Coding Level of Care Code Off vis,est,level 2 Diagnoses Abdominal pain R10.9 Low back pain M54.50 Acute pharyngitis, unspecified J02.9 Contact with or exposure to other viral diseases Z20.828 Assessment and Plan Assessment and Plan (1) Abdominal pain: Status: Acute (2) Low back pain: Status: Acute (3) Acute pharyngitis, unspecified: Status: Acute (4) Contact with or exposure to other viral diseases: Status: Acute Plan: See POC results; declined POC screening for COVID-19 and streptococcal pharyngitis and unable to give urine sample upon request. Supportive measures as instructed today. Work excuse provided at patient's request. Follow-up with PCP in 3 to 5 days s (more content not included)... [facility]26-2024 [facility] NANCY DALEY ([id number]) 3 F UPA Date Time Provider Department 08/26/24 CAREY TOLBERT [facility] During your visit today, we recorded the following information about you: Carey Tolbert APRN.[facility] 08/26/2024 7:57 AM Signed Patient was negative for yeast, trichomonas, bacterial vaginosis. Patient should follow-up with RESEARCH AND DEVELOPMENT RESEARCHER or PCP if symptoms persist Maria Ines Boyer MA 08/26/2024 9:13 AM Signed Unable to reach patient. Left VM to return call to office. Please read below and advise. RUCHI Cross Melissa, MA 08/29/2024 8:49 AM Signed Left message for patient to return call. RUCHI Dawson Krystle, RN 08/29/2024 9:57 AM Signed Patient calls and notified of results and providers instructions. Patient verbalizes understanding. Estefani Cnao RN Allergies As of Date: 08/26/2024 (No Known Allergies) Date Reviewed: 08/25/2024 Reviewed by: Gabriela Mcclure APRN.[facility] - Fully Assessed Reason for Visit: Results [95] Prescriptions as of 08/29/2024 - Benzoyl Peroxide 5 % external wash Apply 1 application to affected area every morning. - tretinoin (RETIN-A) 0.1 % cream Apply 1 application to affected area daily at bedtime. Problem List As Of Date 08/26/2024 Noted Resolved ADHD (attention deficit hyperactivity disorder)* 3 12/03/2015 Encounter Status:Closed by ESTEFANI CANO on 08/29/24 Normal [facility] BACTERIAL VAGINOSIS NAATon 1 10-26-2023 Lactobacillus crispatus+gasseri+jenseni i + Gardnerella vaginalis + Atopobium vaginae rRNA SHAILA+probe Ql (Vag fld) Not detected Normal Not detected [facility] Comment on above: Order Comment: Speci men Type: SWABOrdering Facility: [facility] Address: [address] [place] [address] Performed By: #### B VAMP, CVTV ####[facility] LABCLIA [id number] [place] [address] [place] LUZ/TRICHOMONAS NAATon 1 10-26-2023 C. glabrata RNA SHAILA+probe Ql (Vag fld) Not detected Normal Not detected [facility] Comment on above: Order Comment: Speci men Type: SWABOrdering Facility: [facility] Address: [address] [place] [address] Performed By: #### B VAMP, CVTV ####[facility] LABCLIA [id number] [place] [address] [place] Luz sp DNA SHAILA+probe Ql (Vag fld) Not detected Normal Not detected [facility] Comment on above: Order Comment: Speci men Type: SWABOrdering Facility: [facility] Address: [address] [place] [address] Result Comment: The Luz species group target includes C. albicans, C. tropicalis, C. parapsilosis, and C. dubliniensis. Performed By: #### B VAMP, CVTV ####[facility] LABCLIA [id number] [place] [address] [place] T. vaginalis DNA SHAILA+probe Ql (Unsp spec) Not detected Normal Not detected [facility] Comment on above: Order Comment: Speci men Type: SWABOrdering Facility: [facility] Address: [address] [place] [address] Performed By: #### B VAMP, CVTV ####[facility] LABCLIA [id number] [address] [place] CNOVon 08-25-2024 CNOV Office Visit (UCWSTR) ---- NANCY DALEY ([id number]) 3 F UPA Date Time Provider Department 08/25/24 9:45 AM GABRIELA MCCLURE [facility] During your visit today, we recorded the following information about you: Temperature Pulse Respiration Blood pressure 98.7 degrees 78/minute 21/minute 100/76 Weight 39.9 kg Gabriela Mcclure APRN.CLOTH INSPECTOR 08/25/2024 10:08 AM Signed Subjective The history is provided by the patient. No logistics director was used. EBONI Daley is a 19 year old female who presents today for CC of vaginal discharge and itching. This started 3 days ago. She started using monistat without relief. She is sexaully active, had std testing 2 weeks ago, no new partners refused testing today. Will self swab for BV, yeast, and trichomonas BP 100/76 Pulse 78 Temp 37.1 ?C (98.7 ?F) Resp 21 Wt 39.9 kg (87 lb 15.4 oz) SpO2 99% Social History Tobacco Use Smoking status: Never Passive exposure: Never Smokeless tobacco: Never PAST MEDICAL HISTORY Diagnosis Date NEGATIVE MEDICAL HISTORY PMH - PAST MEDICAL HISTORY OF 05/24/10 normal color vision I have confirmed and edited as necessary, the [facility] Review of Systems Constitutional: Negative for chills and fever. Gastrointestinal: Negative for abdominal pain. Genitourinary: Negative for dysuria, flank pain, frequency, hematuria and urgency. Vaginal discharge and itching, denies any lesion. Objective Physical Exam Vitals and nursing note reviewed. Constitutional: Appearance: Normal appearance. Abdominal: General: Bowel sounds are normal. There is no abdominal bruit. Palpations: Abdomen is not rigid. There is no mass or pulsatile mass. Tenderness: There is no abdominal tenderness. There is no guarding or rebound. Negative signs include Mcleod's sign and McBurney's sign. Neurological: Mental Status: She is alert and oriented to person, place, and time. Psychiatric: Mood and Affect: Affect normal. ASSESSMENT/PLAN: 1. Acute vaginitis - ICD9: 616.10, ICD10: N76.0 Treated today with fluconazole Cultures done, only call if additional treatment needed Follow up with [facility] DEVELOPMENT RESEARCHER - LUZ/TRICHOMONAS NAAT - BACTERIAL VAGINOSIS NAAT Diagnosis and treatment plan were discussed and questions were answered to the patient's satisfaction. Pt acknowledged understanding of concepts and follow up plan. Specific signs and symptoms that would indicate the need for higher level of care were discussed in detail warranting prompt ER evaluation. Gabriela Mcclure APRN.CLOTH INSPECTOR Allergies As of Date: 08/25/2024 (No Known Allergies) Date Reviewed: 08/25/2024 Reviewed by: Gabriela Mcclure APRN.CLOTH INSPECTOR - Fully Assessed Reason for Visit: Vaginal Problem [117] Cmt: Possible yeast infection x 2 days Primary Visit Diagnosis:Acute vaginitis [N76.0] Order(s):fluconazol e (DIFLUCAN) 150 mg tabletTake 1 tablet by mouth one time only for 1 dose. , repeat dose in 3 days.Disp: 2 tabletRfl: 0 LUZ/TRICHOMONAS NAAT [SQCVTV] Order #: [id number]. #:[id number] BACTERIAL VAGINOSIS NAAT [SQBVAMP] Order #: [id number]. #:[id number] Prescriptions as of 08/25/2024 - fluconazole (DIFLUCAN) 150 mg tablet Take 1 tablet by mouth one time only for 1 dose. , repeat dose in 3 days. - Benzoyl Peroxide 5 % external wash Apply 1 application to affected area every morning. - tretinoin (RETIN-A) 0.1 % cream Apply 1 application to affected area daily at bedtime. Problem List As Of Date 08/25/2024 Noted Resolved ADHD (attention deficit hyperactivity disorder)* 3 12/03/2015 Prescriptions ordered this encounter Disp Refills Start End FLUCONAZOLE 150 MG TABLET 2 ta* 0 08/25/2024 08/25/2024 Route: ORAL Sig: Take 1 tablet by mouth one time only for 1 dose. , repeat dose in 3 days. Letter Text Encounter Status:Closed by GABRIELA [facility]CCLURE [facility]PEDSWS[facility] ---- NANCY DALEY ([id number]) 3 F UPA Date Time Provider Department 08/06/24 MARY CHEUNG During your visit today, we recorded the following information about you: Mag Tsai RN 08/06/2024 4:42 PM Signed Mother calls stating that patient was seen in urgent care for a yeast infection on 08/03/24 and provided a prescription for Monistat 3 cream. The pharmacy was unable to get this in until today. In the meantime, she went to ER on 08/04/24 and given another type of cream (Miconazole 2% 45 gram) to use with an applicator daily at bedtime and externally BID prn. Mother reports that the Miconazole has not been helpful and her symptoms seem to be worse. She questions if ok to switch to the Monistat 3 to see if results in any improvement? GABRIELLE Monreal Melissa, MD 08/06/2024 5:35 PM Signed It's fine to try the newer medication MD Quin Malave Amanda S, RN 08/07/2024 8:30 AM Signed Patient/family notified. Mag Tsai RN Allergies As of Date: 08/06/2024 (No Known Allergies) Date Reviewed: 08/03/2024 Reviewed by: Kendy Cuba MA - Fully Assessed Reason for Visit: Vaginal Problem [117] Prescriptions as of 08/07/2024 - Benzoyl Peroxide 5 % external wash Apply 1 application to affected area every morning. - tretinoin (RETIN-A) 0.1 % cream Apply 1 application to affected area daily at bedtime. Problem List As Of Date 08/06/2024 Noted Resolved ADHD (attention deficit hyperactivity disorder)* 3 12/03/2015 Encounter Status:Closed by MAG TSAI on 08/07/24 [facility] Magalys 08-04-2024 [facility] NANCY DALEY ([id number]) 3 F UPA Date Time Provider Department 08/04/24 MARYANN WALDEN [facility] During your visit today, we recorded the following information about you: Maryann Walden APRN.[facility] 08/04/2024 7:58 AM Signed Please advise patient the swab was positive for yeast only. Otherwise negative. Use cream as prescribed yesterday. Maryann Walden APRN.[facility] Kendy Cuba MA 08/04/2024 8:32 AM Signed Pt was notified of the results. Pt verbalized understanding. Kendy Cuba MA Allergies As of Date: 08/04/2024 (No Known Allergies) Date Reviewed: 08/03/2024 Reviewed by: Kendy Cuba MA - Fully Assessed Reason for Visit: Results [95] Prescriptions as of 08/04/2024 - Miconazole Nitrate (MONISTAT 3) 200 mg/5 gram (4 %) crea Use 1 Applicator vaginally once daily for 3 days. - Benzoyl Peroxide 5 % external wash Apply 1 application to affected area every morning. - tretinoin (RETIN-A) 0.1 % cream Apply 1 application to affected area daily at bedtime. Problem List As Of Date 08/04/2024 Noted Resolved ADHD (attention deficit hyperactivity disorder)* 3 12/03/2015 Encounter Status:Closed by KENDY CUBA on 08/04/24 [facility] Emergency Department Summary on 08-04-2024 Emergency Department Summary [facility] Medical Records Department [address] [place] [address] Emergency Department Summary 08/04/24 MR#: [id number] Acct: [id number] Name: NANCY DALEY Rep #: [id number] : 2005 18 From: Lucian Roger MD PCP: Dr. Mary Cheung MD Status:PRE ER Location: ED HPI HPI - Female History of Present Illness Chief Complaint: Female C/O Informant: patient and parent Narrative Narrative: 18-year-old female healthy 1-2 days of intensely pruritic vaginal discomfort with some white discharge. Seen in urgent care and diagnosed clinically with a yeast infection I did not examine her and took some swabs for GC, chlamydia as she had been sexually active, and something else that they are unsure of. Presents tonight because it is just very itchy and she wants to know if she can do something for the itching. The prescription that was written will not be available for 2 more days because it is a holiday weekend. No recent antibiotics for anything. [facility] Medical History Acute sinusitis, unspecified URI (upper respiratory infection) Acute pharyngitis, unspecified Acute sinusitis, unspecified URI (upper respiratory infection) Home Medications ???Medication ???Instructions ???Recorded ???Last Taken ???Type miconazole nitrate 2 % vaginal 1 appful vaginal QHS 7 days #45 08/04/24 Unknown Rx cream (Miconazole-7) grams norgestimate 0.25 mg-ethinyl 1 tab PO DAILY 08/04/24 Unknown History estradiol 35 mcg tablet (Boyd-Linyah) Allergy/AdvReac Type Severity Reaction Status Date / Time No Known Allergies Allergy Verified 08/04/24 01:28 Social History Smoking Status: Never smoker substance use type: does not use ROS ROS ED Constitutional Constitutional ED: Denies chills or fever(s) Genitourinary Genitourinary ED: Reports as per HPI and vaginal discharge; Denies dysuria, hematuria or vaginal bleeding EXAM Physical Exam Const Vital Signs: 08/04/24 01:27 Temperature 97 F L Temperature Source Temporal Pulse Rate 93 Respiratory Rate 16 Blood Pressure 111/47 L Blood Pressure Mean 68 Pulse Ox 100 Positive well nourished and well developed General Appearance ED: well developed and NAD Neck supple Resp normal respiratory effort GI normal to inspection, nondistended, normoactive bowel sounds, soft to palpation and non-tender Narrative: Nontender labia, normal-appearing external genitalia, no edema. No rash or lesions, rash the patient was referring to is in fact white discharge. Speculum Exam - Vagina: vaginal discharge white (Heterogeneous); Negative for vaginal bleeding Extremity normal to inspection and full ROM Neuro oriented x3 and CN's II-XII intact bilaterally Motor Exam: strength 5/5 throughout Psych mental status grossly normal Skin no rashes or lesions noted and no wounds MDM MDM MDM Narrative Medical decision making narrative: Exam is consistent with vaginal candidiasis. Prescription written. Patient and mother aware that these treatments are also available [id number]. Discharge Plan Triage Chief Complaint: Female C/O ED Provider: Lucian Roger Dx/Rx/DC Orders Clinical Impression: Candidiasis of vagina Instructions: ED LUZ VAGINITIS Prescriptions: New miconazole nitrate [Miconazole-7] 2 % cream 1 appful vaginal QHS 7 Days Qty: 45 0RF No Action norgestimate-ethiny l estradiol [Boyd-Linyah] 0.25-35 mg-mcg tablet 1 tab PO DAILY Primary Care Provider: Mary Cheung Referrals: Maribell Galdamez MD [Med Staff - Active Staff] - 1 Week if not improving Mary Cheung MD [Primary Care Provider] - Print Language: French Disposition Disposition: Home, Self Care What to do if you have Problems For any increased pain, shortness of breath, bleeding, nausea or vomiting, chest pain, or any unexpected problems, contact your Primary Care Provider. Call [facility] ([phone]) or report to the closest Emergency Room. Call 911 if necessary. 08/04/24 014 Cosigner Signature (if applicable): CC: Dr. Mary Cheung MD Signed Normal [facility] BACTERIAL VAGINOSIS NAATon 1 10-03-2023 Lactobacillus crispatus+gasseri+jenseni i + Gardnerella vaginalis + Atopobium vaginae rRNA SHAILA+probe Ql (Vag fld) Not detected Normal Not detected [facility] Comment on above: Order Comment: Speci men Type: SWABOrdering Facility: [facility] Address: [address] [place] [address] Performed By: #### 3 6902-5, BVAMP ####[facility] LABCLIA [id number] [place] [address] [place] C. trachomatis+N. gonorrhoea e DNA SHAILA+probe Ql (Unsp spec)on 08-03-2024 C. trachomatis rRNA SHAILA+probe Ql (Unsp spec) Not detected Normal Not detected [facility] Comment on above: Order Comment: Speci men Type: SWABOrdering Facility: [facility] Address: [address] [place] [address] Performed By: #### 3 6902-5, BVAMP ####[facility] LABCLIA [id number] [place] [address] [place] N. gonorrhoeae rRNA SHAILA+probe Ql (Unsp spec) Not detected Normal Not detected [facility] Comment on above: Order Comment: Speci men Type: SWABOrdering Facility: [facility] Address: [address] [place] [address] Performed By: #### 3 6902-5, BVAMP ####[facility] LABCLIA [id number] [place] [address] [place] LUZ/TRICHOMONAS NAATon 1 10-03-2023 C. glabrata RNA SHAILA+probe Ql (Vag fld) Not detected Normal Not detected [facility] Comment on above: Order Comment: Speci men Type: SWABOrdering Facility: [facility] Address: [address] [place] [address] Performed By: #### C VTV ####[facility] LABCLIA [id number] [address] [facility] Luz sp DNA SHAILA+probe Ql (Vag fld) Detected Abnormal Not detected [facility] Comment on above: Order Comment: Speci men Type: SWABOrdering Facility: [facility] Address: [address] [place] [address] Result Comment: The Luz species group target includes C. albicans, C. tropicalis, C. parapsilosis, and C. dubliniensis. Performed By: #### C VTV ####[facility] LABIA [id number] [address] [facility] T. vaginalis DNA SHAILA+probe Ql (Unsp spec) Not detected Normal Not detected [facility] Comment on above: Order Comment: Speci men Type: SWABOrdering Facility: [facility] Address: [address] [place] [address] Performed By: #### C VTV ####[facility] LABIA [id number] [address] [facility] CNOVon 08-03-2024 CNOV Office Visit (UCWSTR) ---- NANCY DALEY ([id number]) 3 F UPA Date Time Provider Department 08/03/24 9:45 AM [facility] During your visit today, we recorded the following information about you: Temperature Pulse Respiration Blood pressure 99.1 degrees 119/minute 18/minute 100/78 Weight 39.8 kg Maryann Walden APRN.CNP 08/03/2024 10:13 AM Signed Subjective Vaginal Problem Pertinent negatives include no chills or fever. Nancy Daley is a 18 year old female who presents with vaginal burning and discharge since yesterday. She states the area inside vagina ying all the time. She is not currently sexually active but has been in the past. LMP 07/07/2024 Denies vaginal bleeding, sores, dysuria or frequency. No fever. Review of Systems Constitutional: Negative for chills and fever. Respiratory: Negative. Cardiovascular: Negative. Genitourinary: Positive for vaginal discharge. Negative for dysuria and frequency. See HPI BP 100/78 Pulse 119 Temp 37.3 ?C (99.1 ?F) Resp 18 Wt 39.8 kg (87 lb 11.9 oz) SpO2 98% PAST MEDICAL HISTORY Diagnosis Date NEGATIVE MEDICAL HISTORY PMH - PAST MEDICAL HISTORY OF 05/24/10 normal color vision PAST SURGICAL HISTORY Procedure Laterality Date NONE ALLERGIES Patient has no known allergies. MEDICATIONS Benzoyl Peroxide 5 % external wash Apply 1 application to affected area every morning. tretinoin (RETIN-A) 0.1 % cream Apply 1 application to affected area daily at bedtime. FAMILY HISTORY Problem Relation Age of Onset Hypertension Maternal Grandmother Social History Tobacco Use Smoking status: Never Passive exposure: Never Smokeless tobacco: Never Objective Physical Exam Vitals and nursing note reviewed. Exam conducted with a animal shelter manager present. Constitutional: Appearance: Normal appearance. Cardiovascular: Rate and Rhythm: Normal rate. Pulmonary: Effort: Pulmonary effort is normal. Genitourinary: Exam position: Lithotomy position. Pubic Area: No rash. Labia: Right: Tenderness present. No rash, lesion or injury. Left: Tenderness present. No rash, lesion or injury. Vagina: Vaginal discharge, erythema and tenderness present. Comments: Vulvar tissue is erythematous and slightly swollen. Skin: General: Skin is warm and dry. Findings: Erythema present. No rash. Neurological: Mental Status: She is alert. The sensitive examination was discussed with the Patient or Patient's Authorized Software Design Engineer. As applicable, any other physician, advance practice provider, medical student, or other health professional student that will be observing or involved in the sensitive examination for educational or training purposes was discussed with the Patient or Authorized Software Design Engineer. The Patient or Authorized Software Design Engineer has agreed to proceed with the sensitive examination. (Sensitive examination includes inspection and/or palpation of the breasts, pelvis, prostate and anorectal regions) ASSESSMENT/PLAN: 1. Vaginal discharge - ICD9: 623.5, ICD10: N89.8 - LUZ/TRICHOMONAS NAAT - BACTERIAL VAGINOSIS NAAT - GONORRHEA/CHLAMYDIA NAAT - miconazole cream prescribed for suspected yeast infection. Please treat accordingly if other tests are positive. - Follow-up with your PCP in 3-5 days if symptoms have not improved or sooner if symptoms worsen - Discussed red flags and need for immediate medical evaluation if any occur. - Discussed supportive care treatment with fluids, rest and analgesia. - Discussed expected course of illness Maryann Walden APRN.Maryann Barvo APRN.CNP 08/03/2024 10:13 AM Signed ASSESSMENT/PLAN: 1. Vaginal discharge - ICD9: 623.5, ICD10: N89.8 - LUZ/TRICHOMONAS NAAT - BACTERIAL VAGINOSIS NAAT - GONORRHEA/CHLAMYDIA NAAT - miconazole cream prescribed for suspected yeast infection. Please treat accordingly if other tests are positive. - Follow-up with your PCP in 3-5 days if symptoms have not improved or sooner if symptoms worsen - Discussed red flags and need for immediate medical evaluation if any occur. - Discussed supportive care treatment with fluids, rest and analgesia. - Discussed expected course of illness Maryann Walden APRN.CNP [facility] PATIENT INFO VAGINAL YEAST INFECTION INTRODUCTION Vaginal yeast infections are a common problem in women. Vaginal yeast infections are also called yeast vaginitis or vaginal candidiasis. The most common symptoms of a yeast infection are itching and irritation of the vulva and around the opening of the vagina. Yeast infections occur mainly in women who are menstruating (having monthly periods). They are less common in postmenopausal women who do not take estrogen and in girls who have not yet started menstruating. VAGINAL YEAST INFECTION SYMPTOMS The most common symptoms of (more content not included)... Normal [facility] Urgent Care Visit Reporton 1 09-18-2023 Urgent Care Visit Report [facility] [address], [address] [place] [address] OFFICE VISIT Date of Service: 07/19/24 MR#: [id number] Acct: [id number] Name: NANCY DALEY Rep #: [id number] : 2005 Provider: STEVEN Sampson Age/Sex: 18/F Location: [facility] Status: Signed Intake Vital Signs 06/10/24 10:31 Height 4 ft 11 in Weight: 90 lb BMI 18.1 BP 110/74 Blood Pressure Location Lt brachial Position Sitting Respiration 16 Pulse 95 Pulse Source Monitor Temp 99.4 F H Temp Source Temporal Pulse Oximetry (%) 98 Oxygen Delivery Method room air Intake Visit Reasons: PE NON DOT PHYSICAL/ SELF PAY Chief Complaint: Preemployment physical Allergies No Known Allergies Allergy (Verified 06/10/24 10:33) PFSH Medical History Acute sinusitis, unspecified URI (upper respiratory infection) Acute pharyngitis, unspecified Acute sinusitis, unspecified URI (upper respiratory infection) Social History Smoking Status: Never smoker substance use type: does not use HPI HPI Chief Complaint: Preemployment physical Details: NANCY DALEY, is a 18 F who presents to the office today for preemployment physical. Please see corresponding scanned documents with today's date. Office Procedures Physical Exam Coding PE Coding Pre-employment PE: Yes Coding Level of Care Code No Charge Diagnoses Encounter for pre-employment health screening examination Z02.1 Assessment and Plan Assessment and Plan (1) Encounter for pre-employment health screening examination: Status: Acute 07/19/24 1349 Date Dustin Coradoigner Signature: Date (if applicable) CC: [facility] Absolute lymphocyte countOrd ered By: Irvin Barragan on 04-20-2023 Lymphocytes Auto (Unsp spec) [#/Vol] 1.14 10*3/uL 0.83-4.51 [facility] Basophil percentageOrdered B y: Irvin Barragan on 04-20-2023 Basophils/100 WBC (Bld) 0.6 % 0-1 [facility] Chloride [Moles/Vol] 110 mmol/L 98-107 [facility] Eosinophils/100 WBC (Bld) 1.1 % 0-3 [facility] Glucose [Mass/Vol] 100 mg/dL 74-106 [facility] Comment on above: Fasting Glucose resu lt from 100 to 125 mg/dL suggests IMPAIRED HOMEOSTASIS per A.D.A. criteria. Neutrophils (Bld) [#/Vol] 3.1 10*3/uL 2.0-7.7 [facility] Neutrophils/100 WBC (Bld) 67.0 % 34-64 [facility] Potassium [Moles/Vol] 3.6 mmol/L 3.5-5.1 [facility] Sodium [Moles/Vol] 139 mmol/L 136-145 [facility] WBC (Bld) [#/Vol] 4.6 10*3/uL 4.5-13.0 [facility] Beta hCG serum qualOrdered B y: Irvin Barragan on 04-20-2023 Beta HCG ( test) Ql Negative [facility] Blood erythrocytes count (nu mber/volume)Ordered By: Irvin Barragan on 04-20-2023 RBC (Bld) [#/Vol] 4.05 10*6/uL 4.1-4.8 [facility] Blood hemoglobin measurement (mass/volume)Ordered By: Irvin Barragan on 04-20-2023 Hemoglobin (Bld) [Mass/Vol] 12.3 g/dL 12.0-15.0 [facility] Blood lymphocytes/100 leukoc ytesOrdered By: Irvin Barragan on 04-20-2023 Lymphocytes/100 WBC (Bld) 24.6 % 25-45 [facility] Blood monocytes/100 leukocyt esOrdered By: Irvin Barragan on 04-20-2023 Monocytes/100 WBC (Bld) 6.3 % 3-6 [facility] Blood platelet mean volumeOr dered By: Irvin Barragan on 04-20-2023 Platelet mean volume (Bld) [Entitic vol] 9.2 fL 6.2-12.0 [facility] Determination of erythrocyte mean corpuscular volume (MCV)Ordered By: Irvin Barragan on 04-20-2023 MCV (RBC) [Entitic vol] 95.1 fL 78-96 [facility] Hematocrit Auto (Bld) [Volum e fraction]Ordered By: Irvin Barragan on 04-20-2023 Hematocrit (Bld) [Volume fraction] 38.5 % 37-46 [facility] Laboratory - Chemistry and C hemistry - challengeOrdered By: Irvin Barragan on 04-20-2023 CO2 [Moles/Vol] 25.0 mmol/L 21.0-32.0 [facility] Magnesium [Mass/Vol] 2.0 mg/dL 1.6-2.6 [facility] Urea nitrogen/Creatinine [Mass ratio] 10.6 mg/mg 10-20 [facility] Laboratory - Hematology and Cell countsOrdered By: Irvin Barragan on 04-20-2023 Erythrocyte distribution width (RBC) [Entitic vol] 42.7 fL 35.1-43.9 [facility] Erythrocyte distribution width (RBC) [Ratio] 12.2 % 11.6-14.6 [facility] Immature granulocytes/100 WBC (Bld) 0.400 % 0.0-0.9 [facility] Comment on above: IG% - Immature Granu locytes (promyelocytes, myelocytes and metamyelocytes) > 1% indicates that a LEFT SHIFT is Present. MCH (RBC) [Entitic mass] 30.4 pg 25.0-35.0 [facility] Nucleated RBC/100 WBC (Bld) [Ratio] 0 % 0-5 [facility] MCHC Auto (RBC) [Mass/Vol]Or dered By: Irvin Barragan on 04-20-2023 MCHC (RBC) [Mass/Vol] 31.9 g/dL 32-36 [facility] No Panel InformationOrdered By: Irvin Barragan on 04-20-2023 Estimated Creatinine Clearance Calc 88.10 ml/min [facility] Estimated GFR (MDRD) Amer 149 mL/min >60 [facility] Comment on above: GFR Calc Estimated GFR (MDRD) Non-Af Amer 123 mL/min >60 [facility] Comment on above: Non- GFR Calc Thyroid Stimulating Hormone (TSH) 1.52 uIU/mL 0.358-3.74 [facility] Troponin I High Sensitivity < 3 pg/mL 3.0-54.0 [facility] Comment on above: Please Note: [place] t Units and Gender Specific Reference Ranges. For more information see Policy Stat Procedure [place] High Sensitivity Troponin (TNIH) and attachments. Platelets bldOrdered By: Arthur Barragan on 04-20-2023 Platelets (Bld) [#/Vol] 214 10*3/uL 150-450 [facility] Serum or plasma calcium cristy urement (mass/volume)Ordered By: Irvin Barragan on 04-20-2023 Calcium [Mass/Vol] 9.3 mg/dL 8.5-10.1 [facility] Serum or plasma creatinine m easurement (mass/volume)Ordered By: Irvin Barragan on 04-20-2023 Creatinine [Mass/Vol] 0.66 mg/dL 0.55-1.02 [facility] Comment on above: The validity of the calculated GFR & GFRAA in patients over 70 years has not been determined. Clinical correlation is essential. Serum or plasma urea nitroge n measurement (mass/volume)Ordered By: Irvin Barragan on 04-20-2023 Urea nitrogen [Mass/Vol] 7 mg/dL 7-18 [facility] Thin prep Papanicolaou smear with manual screeningOrdered By: Irvin Barragan on 04-20-2023 Thin prep Papanicolaou smear with manual screening 4 5-15 [facility] Basophil percentageOrdered B y: Erik Esteves on 04-16-2023 Basophil percentage 0 SEEN /hpf 0-5 [facility] Culture, urineOrdered By: Edith Esteves on 04-16-2023 Bacteria identified Cx Nom (U) Culture exhibits no growth. [facility] Laboratory - Chemistry and C hemistry - challengeon 04-16-2023 HCG ( test) Ql (U) Negative [facility] Glucose Ql (U) Negative [facility] pH (U) 6.0 [pH] [facility] Urobilinogen (U) [Mass/Vol] 0.4922054 mg/dL [facility] Laboratory - Hematology and Cell countson 04-16-2023 Hemoglobin Ql (U) Negative [facility] Laboratory - Specimen inform ationon 04-16-2023 Clarity (U) Cloudy [facility] Color (U) FLOR [facility] Mucus LM Ql (Urine sed)Order ed By: Erik Esteves on 04-16-2023 Mucus Ql (Urine sed) 0 SEEN /hpf [facility] Nitrite ur dipstickOrdered B y: Erik Esteves on 04-16-2023 Nitrite Ql (U) Negative [facility] No Panel Informationon 04-16 Urine Leukocytes Negatve [facility] Urine Non-Hemolyzed Blood Negative [facility] Squamous epithelial cells de tection in urine sediment by light microscopyOrdered By: Erik Esteves on 04-16-2023 Epithelial cells.squamous LM Ql (Urine sed) 0-5 SEEN /hpf 5-10 [facility] Urine blood detectionOrdered By: Erik Esteves on 04-16-2023 RBC Ql (U) Negative Negative [facility] System RBC Ql (U) 0 SEEN /hpf 0-5 [facility] Urine clarityOrdered By: Capo Esteves on 04-16-2023 Clarity (U) Sl. Cloudy Clear [facility] Urine color determinationOrd ered By: Erik Esteves on 04-16-2023 Color (U) Yellow Yellow [facility] Urine glucose detectionOrder ed By: Erik Esteves on 04-16-2023 Glucose Ql (U) Normal mg/dl Normal [facility] Urine ketones detection by t est stripOrdered By: Erik Esteves on 04-16-2023 Ketones Ql (U) Negative [facility] Urine leukocyte esterase det ection by dipstickOrdered By: Erik Esteves on 04-16-2023 Leukocyte esterase Test strip Ql (U) Negative Negative [facility] Urine pHOrdered By: Erik darby on 04-16-2023 pH (U) 6.5 [pH] 5.0 - 8.0 [facility] Urine protein assay by test strip, semi-quantitativeOrdered By: Erik Esteves on 04-16-2023 Protein Ql (U) Negative [facility] Urine sediment bacteria coun t by microscopy (number/high power field)Ordered By: Erik Esteves on 04-16-2023 Bacteria LM.HPF (Urine sed) [#/Area] 0 /[HPF] None Seen [facility] Urine specific gravity measu rementOrdered By: Erik Esteves on 04-16-2023 Specific gravity (U) [Rel density] 1.010 [facility] Urine total bilirubin detect ion by test stripOrdered By: Erik Esteves on 04-16-2023 Bilirubin Ql (U) Negative [facility] Urobilinogen Auto test strip Ql (U)Ordered By: Erik Esteves on 04-16-2023 Urobilinogen Ql (U) Normal mg/dl Normal [facility] Basophil percentageOrdered B y: Dustin Lindo on 04-14-2023 Basophil percentage 0 SEEN /hpf 0-5 [facility] Bilirubin Test strip Ql (U)O rdered By: Dustin Lindo on 04-14-2023 Bilirubin Ql (U) Negative Negative [facility] Culture, urineOrdered By: Roverto Lindo on 04-14-2023 Bacteria identified Cx Nom (U) Positive [facility] Ketones Test strip Ql (U)Ord ered By: Dustin Lindo on 04-14-2023 Ketones Ql (U) Negative Negative [facility] Laboratory - Chemistry and C hemistry - challengeon 04-14-2023 Bilirubin Ql (U) Negative [facility] Glucose Ql (U) Negative [facility] Ketones Ql (U) Negative [facility] pH (U) 6.5 [pH] [facility] Specific gravity (U) [Rel density] 1.015 [facility] Urobilinogen (U) [Mass/Vol] Negative [facility] HCG ( test) Ql (U) Negative [facility] Laboratory - Hematology and Cell countson 04-14-2023 Hemoglobin Ql (U) Negative [facility] Laboratory - Specimen inform ationon 04-14-2023 Clarity (U) Clear [facility] Color (U) Yellow [facility] Laboratory - Urinalysison Nitrite Ql (U) Negative [facility] Protein Ql (U) Trace [facility] Mucus LM Ql (Urine sed)Order ed By: Dustin Lindo on 04-14-2023 Mucus Ql (Urine sed) 0 SEEN /hpf [facility] Nitrite Test strip Ql (U)Ord ered By: Dustin Lindo on 04-14-2023 Nitrite Ql (U) Negative Negative [facility] No Panel Informationon 04-14 Urine Leukocytes Negatve [facility] Urine Non-Hemolyzed Blood [facility] Protein Test strip Ql (U)Ord ered By: Dustin Lindo on 04-14-2023 Protein Ql (U) 15 mg/dl Negative [facility] Squamous epithelial cells de tection in urine sediment by light microscopyOrdered By: Dustin Lindo on 04-14-2023 Epithelial cells.squamous LM Ql (Urine sed) 0-5 SEEN /hpf 5-10 [facility] Urine blood detectionOrdered By: Dustin Lindo on 04-14-2023 RBC Ql (U) Negative Negative [facility] RBC Ql (U) 0 SEEN /hpf 0-5 [facility] Urine clarityOrdered By: Sher Lindo on 04-14-2023 Clarity (U) Sl. Cloudy Clear [facility] Urine color determinationOrd ered By: Dustin Lindo on 04-14-2023 Color (U) Yellow Yellow [facility] Urine glucose detectionOrder ed By: Dustin Lindo on 04-14-2023 Glucose Ql (U) Normal mg/dl Normal [facility] Urine leukocyte esterase det ection by dipstickOrdered By: Dustin Lindo on 04-14-2023 Leukocyte esterase Test strip Ql (U) Negative Negative [facility] Urine pHOrdered By: Dustin hunter on 04-14-2023 pH (U) 6.5 [pH] 5.0 - 8.0 [facility] Urine sediment bacteria coun t by microscopy (number/high power field)Ordered By: Dustin Lindo on 04-14-2023 Bacteria LM.HPF (Urine sed) [#/Area] 0 /[HPF] None Seen [facility] Urine specific gravity measu rementOrdered By: Dustin Lindo on 04-14-2023 Specific gravity (U) [Rel density] 1.015 1.002-1.030 [facility] Urobilinogen Auto test strip Ql (U)Ordered By: Dustin Lindo on 04-14-2023 Urobilinogen Ql (U) Normal mg/dl Normal [facility] Laboratory - Microbiology an d Antimicrobial susceptibilityon 11-24-2021 S. pyogenes Ag Ql (Throat) [facility] Work Phone: S. pyogenes Ag IA Ql (Unsp spec) Negative [facility] Work Phone: Vital Signs Date Time Vital Sign Value Performing Clinician Facility 05-06-2025 11:12-0400 Body mass index (BMI) [Ratio] 16.36 kg/m2 Carey Tolbert APRN.CLOTH INSPECTOR Work Phone: [facility] 05-06-2025 11:12-0400 Body temperature 98.8 [degF] Carey Tolbert APRN.CLOTH INSPECTOR Work Phone: [facility] 05-06-2025 11:12-0400 Body weight 37.8 kg Carey Tolbert APRN.CLOTH INSPECTOR Work Phone: [facility] 05-06-2025 11:12-0400 Diastolic blood pressure 60 mm[Hg] Carey Tolbert APRN.CLOTH INSPECTOR Work Phone: [facility] 05-06-2025 11:12-0400 Heart rate 110 /min Carey Tolbert APRN.CLOTH INSPECTOR Work Phone: [facility] 05-06-2025 11:12-0400 Respiratory rate 16 /min Carey Tolbert APRN.CLOTH INSPECTOR Work Phone: [facility] 05-06-2025 11:12-0400 SaO2% (BldA) [Mass fraction] 96 % Carey Tolbert APRN.CLOTH INSPECTOR Work Phone: [facility] 05-06-2025 11:12-0400 Systolic blood pressure 102 mm[Hg] Carey Tolbert APRN.CLOTH INSPECTOR Work Phone: [facility] 10-18-2024 08:42-0500 Body temperature 97.7 [degF] Griffin Benton APRN.CLOTH INSPECTOR Work Phone: [facility] 10-18-2024 08:42-0500 Body weight 40 kg [facility] TIERCE FILLER.CLOTH INSPECTOR Work Phone: [facility] 10-18-2024 08:42-0500 Diastolic blood pressure 88 mm[Hg] [facility] TIERCE FILLER.CLOTH INSPECTOR Work Phone: [facility] 10-18-2024 08:42-0500 Heart rate 109 /min [facility] TIERCE FILLER.CLOTH INSPECTOR Work Phone: [facility] 10-18-2024 08:42-0500 Respiratory rate 20 /min [facility] TIERCE FILLER.CLOTH INSPECTOR Work Phone: [facility] 10-18-2024 08:42-0500 SaO2% (BldA) [Mass fraction] 99 % [facility] TIERCE FILLER.CLOTH INSPECTOR Work Phone: [facility] 10-18-2024 08:42-0500 Systolic blood pressure 116 mm[Hg] [facility] TIERCE FILLER.CLOTH INSPECTOR Work Phone: [facility] 10-16-2024 13:19-0500 Body temperature 98.1 [degF] Dr. Mary Cheung MD Work Phone: [facility] 10-16-2024 13:19-0500 Diastolic blood pressure 60 mm[Hg] Dr. Mary Cheung MD Work Phone: [facility] 10-16-2024 13:19-0500 Heart rate 83 /min Dr. Mary Cheung MD Work Phone: [facility] 10-16-2024 13:19-0500 Respiratory rate 14 /min Dr. Mary Cheung MD Work Phone: [facility] 10-16-2024 13:19-0500 SaO2% (BldA) [Mass fraction] 98 % Dr. Mary Chenug MD Work Phone: [facility] 10-16-2024 13:19-0500 Systolic blood pressure 92 mm[Hg] Dr. Mary Cheung MD Work Phone: [facility] 08-25-2024 09:52-0500 Body temperature 98.71 [degF] Gabriela Ren TIERCE FILLER.CLOTH INSPECTOR Work Phone: [facility] 08-25-2024 09:52-0500 Body weight 39.9 kg Gabriela Ren TIERCE FILLER.CLOTH INSPECTOR Work Phone: [facility] 08-25-2024 09:52-0500 Diastolic blood pressure 76 mm[Hg] Gabriela Ren TIERCE FILLER.CLOTH INSPECTOR Work Phone: [facility] 08-25-2024 09:52-0500 Heart rate 78 /min Gabriela Ren TIERCE FILLER.CLOTH INSPECTOR Work Phone: [facility] 08-25-2024 09:52-0500 Respiratory rate 21 /min Gabriela Ren TIERCE FILLER.CLOTH INSPECTOR Work Phone: [facility] 08-25-2024 09:52-0500 SaO2% (BldA) [Mass fraction] 99 % Gabriela Ren TIERCE FILLER.CLOTH INSPECTOR Work Phone: [facility] 08-25-2024 09:52-0500 Systolic blood pressure 100 mm[Hg] Gabriela Ren TIERCE FILLER.CLOTH INSPECTOR Work Phone: [facility] 08-03-2024 09:52-0500 Body temperature 99.1 [degF] Maryann Praisler-Wood TIERCE FILLER.CLOTH INSPECTOR Work Phone: [facility] 08-03-2024 09:52-0500 Body weight 39.8 kg Amryann Praisler-Wood TIERCE FILLER.CLOTH INSPECTOR Work Phone: [facility] 08-03-2024 09:52-0500 Diastolic blood pressure 78 mm[Hg] Maryann Praisler-Wood TIERCE FILLER.CLOTH INSPECTOR Work Phone: [facility] 08-03-2024 09:52-0500 Heart rate 119 /min Maryann Praisler-Wood TIERCE FILLER.CLOTH INSPECTOR Work Phone: [facility] 08-03-2024 09:52-0500 Respiratory rate 18 /min Maryann Praisler-Wood TIERCE FILLER.CLOTH INSPECTOR Work Phone: [facility] 08-03-2024 09:52-0500 SaO2% (BldA) [Mass fraction] 98 % Maryann Praisler-Wood TIERCE FILLER.CLOTH INSPECTOR Work Phone: [facility] 08-03-2024 09:52-0500 Systolic blood pressure 100 mm[Hg] Maryann Praisler-Wood TIERCE FILLER.CLOTH INSPECTOR Work Phone: [facility] 04-20-2023 13:45-0400 Diastolic blood pressure 62 mm[Hg] PA Dustin Lindo PA Work Phone: [facility] 04-20-2023 13:45-0400 Heart rate 72 /min PA Dustin Lindo PA Work Phone: [facility] 04-20-2023 13:45-0400 Respiratory rate 16 /min PA Dustin Lindo PA Work Phone: [facility] 04-20-2023 13:45-0400 SaO2% (BldA) [Mass fraction] 100 % PA Dustin Lindo PA Work Phone: [facility] 04-20-2023 13:45-0400 Systolic blood pressure 100 mm[Hg] STEVEN Lindo PA Work Phone: [facility] 04-20-2023 12:03-0400 Body height 149.86 cm STEVEN Lindo PA Work Phone: [facility] 04-20-2023 12:03-0400 Body mass index (BMI) [Percentile] Per age and sex 6.3 % PA Dustin Lindo PA Work Phone: [facility] 04-20-2023 12:03-0400 Body mass index (BMI) [Ratio] 17.9 kg/m2 PA Dustin Lindo PA Work Phone: [facility] 04-20-2023 12:03-0400 Body temperature 98 [degF] STEVEN Lindo PA Work Phone: [facility] 04-20-2023 12:03-0400 Body weight 40.36 kg PA Dustin Lindo PA Work Phone: [facility] 04-16-2023 11:02-0400 Body height 149.86 cm PA Dustin Lindo PA Work Phone: [facility] 04-16-2023 11:02-0400 Body mass index (BMI) [Percentile] Per age and sex 6.3 % PA Dustin Lindo PA Work Phone: [facility] 04-16-2023 11:02-0400 Body mass index (BMI) [Ratio] 17.9 kg/m2 PA Dustin Lindo PA Work Phone: [facility] 04-16-2023 11:02-0400 Body temperature 98.2 [degF] PA Dustin Lindo PA Work Phone: [facility] 04-16-2023 11:02-0400 Body weight 40.36 kg PA Dustin Lindo PA Work Phone: [facility] 04-16-2023 11:02-0400 Diastolic blood pressure 75 mm[Hg] PA Dustin Lindo PA Work Phone: [facility] 04-16-2023 11:02-0400 Heart rate 78 /min PA Dustin Lindo PA Work Phone: [facility] 04-16-2023 11:02-0400 Respiratory rate 16 /min PA Dustin Lindo PA Work Phone: [facility] 04-16-2023 11:02-0400 SaO2% (BldA) [Mass fraction] 96 % PA Dustin Lindo PA Work Phone: [facility] 04-16-2023 11:02-0400 Systolic blood pressure 109 mm[Hg] PA Dustin Lindo PA Work Phone: [facility] 04-14-2023 08:18-0400 Body mass index (BMI) [Percentile] Per age and sex 7.1 % PA Dustin Lindo PA Work Phone: [facility] 04-14-2023 08:18-0400 Body mass index (BMI) [Ratio] 18 kg/m2 PA Dustin Lindo PA Work Phone: [facility] 04-14-2023 08:18-0400 Body temperature 98.6 [degF] PA Dustin Lindo PA Work Phone: [facility] 04-14-2023 08:18-0400 Body weight 40.42 kg PA Dustin Lindo PA Work Phone: [facility] 04-14-2023 08:18-0400 Diastolic blood pressure 64 mm[Hg] PA Dustin Lindo PA Work Phone: [facility] 04-14-2023 08:18-0400 Heart rate 90 /min PA Dsutin Lindo PA Work Phone: [facility] 04-14-2023 08:18-0400 Respiratory rate 15 /min PA Dustin Lindo PA Work Phone: [facility] 04-14-2023 08:18-0400 SaO2% (BldA) [Mass fraction] 97 % PA Dustin Lindo PA Work Phone: [facility] 04-14-2023 08:18-0400 Systolic blood pressure 98 mm[Hg] PA Dustin Lindo PA Work Phone: [facility] 06-10-2022 12:57-0400 Body height 152 cm Karey Felix TIERCE FILLER.CLOTH INSPECTOR Work Phone: [facility] 06-10-2022 12:57-0400 Body mass index (BMI) [Percentile] Per age and sex 1.06 % Karey Felix TIERCE FILLER.CLOTH INSPECTOR Work Phone: [facility] 06-10-2022 12:57-0400 Body temperature 98.71 [degF] Karey Felix TIERCE FILLER.CLOTH INSPECTOR Work Phone: [facility] 06-10-2022 12:57-0400 Body weight 38.1 kg Karey Felix TIERCE FILLER.CLOTH INSPECTOR Work Phone: [facility] 06-10-2022 12:57-0400 Diastolic blood pressure 50 mm[Hg] Karey Felix TIERCE FILLER.CLOTH INSPECTOR Work Phone: [facility] 06-10-2022 12:57-0400 Heart rate 76 /min Karey Felix TIERCE FILLER.CLOTH INSPECTOR Work Phone: [facility] 06-10-2022 12:57-0400 Respiratory rate 12 /min Karey Felix TIERCE FILLER.CLOTH INSPECTOR Work Phone: [facility] 06-10-2022 12:57-0400 Systolic blood pressure 102 mm[Hg] Karey Felix TIERCE FILLER.CLOTH INSPECTOR Work Phone: [facility] 11-24-2021 09:10-0400 Heart rate 92 /min PA John HARRIS Work Phone: [facility] Work Phone: 11-24-2021 09:02-0400 Body temperature 98.2 [degF] PA John HARRIS Work Phone: [facility] Work Phone: 11-24-2021 09:02-0400 Diastolic blood pressure 64 mm[Hg] STEVEN HARRIS Work Phone: [facility] Work Phone: 11-24-2021 09:02-0400 Respiratory rate 16 /min PA John HARRIS Work Phone: [facility] Work Phone: 11-24-2021 09:02-0400 SaO2% (BldA) [Mass fraction] 99 % PA John HARRIS Work Phone: [facility] Work Phone: 11-24-2021 09:02-0400 Systolic blood pressure 102 mm[Hg] STEVEN HARRIS Work Phone: [facility] Work Phone: Encounters Encounter Date Encounter Type Care Provider Facility Start: 07-04-2025 End: 07-04-2025 Emergency department patient visit [facility] Facility:[facility] Start: 05-07-2025 End: 05-07-2025 Follow-up encounter Carey Tolbert APRN.CLOTH INSPECTOR Work Phone: [facility] Comment on above: Results Start: 05-06-2025 End: 05-06-2025 Patient encounter procedure Carey Tolbert APRN.CLOTH INSPECTOR Work Phone: [facility] Comment on above: Burning with urinati on (Primary Dx); Vaginal itching Start: 05-06-2025 End: 05-07-2025 ambulatory MARY CHEUNG Facility:[facility]: [facility] Start: 05-01-2025 End: 05-01-2025 Subsequent hospital visit by physician [facility] Work Phone: Radiology Comment on above: Functional constipat ion [K59.04] Start: 05-01-2025 End: 05-01-2025 ambulatory MARY LEMUS Facility:[facility] Start: 02-04-2025 End: 02-04-[address] Mary Cheung MD Work Phone: [facility] Work Phone: Start: 02-04-2025 End: 02-04-2025 Patient encounter procedure STEVO BOND MD -Laboratory Specimen Work Phone: Start: 02-04-2025 End: 02-04-2025 ambulatory [place] [facility] Facility:[facility] Start: 10-18-2024 End: 10-19-2024 Follow-up encounter Gabino Fine APRN.CLOTH INSPECTOR Work Phone: [facility] Start: 10-18-2024 End: 10-18-2024 ambulatory MARY CHEUNG Facility:[facility] Start: 10-18-2024 End: 10-18-2024 Office outpatient visit 15 minutes Griffin Benton APRN.CLOTH INSPECTOR Work Phone: [facility] Comment on above: Viral illness (Prima ry Dx) Start: 10-16-2024 End: 10-16-2024 Patient encounter procedure John Posey [place] -[facility] Work Phone: Start: 10-16-2024 End: 10-16-2024 ambulatory [facility] Facility[facility] Start: 08-26-2024 End: 08-29-2024 Telephone encounter Carey Tolbert APRN.CLOTH INSPECTOR Work Phone: [facility] Comment on above: Results Start: 08-25-2024 End: 08-25-2024 ambulatory [facility] Facility:[facility] Start: 08-25-2024 End: 08-25-2024 Patient encounter procedure Gabriela Mcclure TIERCE FILLER.CLOTH INSPECTOR Work Phone: [facility] Comment on above: Acute vaginitis (Kiarra antoni Dx) Start: 08-06-2024 End: 08-07-2024 Telephone encounter Mary Cheung MD Work Phone: [facility] Comment on above: Vaginal Problem Start: 08-04-2024 End: 08-04-2024 Telephone encounter Maryann Walden APRN.CLOTH INSPECTOR Work Phone: [facility] Comment on above: Results Start: 08-04-2024 End: 08-04-2024 Emergency department patient visit [facility] Facility:[facility] Start: 08-03-2024 End: 08-03-2024 [facility] Facility:[facility] Start: 08-03-2024 End: 08-03-2024 Patient encounter procedure Maryann Walden APRN.CLOTH INSPECTOR Work Phone: [facility] Comment on above: Vaginal discharge (P rimary Dx) Start: 07-19-2024 End: 07-19-2024 ambulatory [facility] Facility:[facility] Start: 04-20-2023 End: 04-20-2023 Emergency department patient visit STEVEN HARRIS Work Phone: [facility] Work Phone: Start: 04-20-2023 End: 04-20-2023 Patient encounter procedure Sakina Walton TIERCE FILLER.CLOTH INSPECTOR Work Phone: [facility] Comment on above: Chest pain, unspecif ied type (Primary Dx) Start: 04-17-2023 Telephone encounter Mary fuentes MD Work Phone: [facility] Comment on above: Question Start: 04-17-2023 End: 04-17-2023 ambulatory STEVEN HARRIS Work Phone: [facility] Work Phone: Start: 04-17-2023 End: 04-17-2023 Patient encounter procedure STEVEN HARRIS [facility] Phone[facility] Work Phone: Start: 04-16-2023 End: 04-16-2023 Patient encounter procedure STEVEN HARRIS Work Phone: [facility] Work Phone: Start: 04-14-2023 End: 04-14-2023 Patient encounter procedure STEVEN HARRIS Work Phone: [facility] Work Phone: Start: 04-14-2023 End: 04-14-2023 Patient encounter procedure STEVEN HARRIS [facility] Work Phone: Start: 06-10-2022 End: 06-10-2022 Patient encounter procedure Karey Felix APRN.CLOTH INSPECTOR Work Phone: [facility] Comment on above: Well adolescent visi t without abnormal findings (Primary Dx); Encounter for immunization Start: 06-10-2022 End: 06-10-2022 Patient encounter status Karey Felix APRN.CLOTH INSPECTOR Work Phone: [facility] Start: 11-24-2021 End: 11-24-2021 Patient encounter procedure STEVEN HARRIS Work Phone: [facility] Start: 11-24-2021 End: 11-24-2021 Patient encounter procedure STEVEN HARRIS Work Phone: [facility] Start: 04-14-2020 End: 04-14-2020 Patient encounter procedure Mary Cheung Work Phone: [facility] Comment on above: UTI Procedures Date Procedure Procedure Detail Performing Clinician Start: 05-06-2025 BACTERIAL VAGINOSIS NAAT Carey Tolbert TIERCE FILLER.CLOTH INSPECTOR Work Phone: Start: 05-06-2025 Urnls dip stick/tabl et rgnt auto w/o microscopy Carey Tolbert TIERCE FILLER.CLOTH INSPECTOR Work Phone: Start: 02-04-2025 Gram stain microscopy D r. Mary Cheung MD Work Phone: Start: 04-20-2023 Plain chest X-ray STEVEN HARRIS Work Phone: Start: 04-16-2023 Urine culture STEVEN olivares PA Work Phone: Start: 04-14-2023 Urine culture STEVEN HARRIS Work Phone: Start: 06-10-2022 Menacwy-tt conj vacc serogroups acwy for im use Karey Felix TIERCE FILLER.CLOTH INSPECTOR Work Phone: Start: 06-10-2022 Adult depression scr eening assessment Karey Felix TIERCE FILLER.CLOTH INSPECTOR Work Phone: Start: 11-24-2021 Streptococcus pyogen es Ag [Presence] in Throat STEVEN HARRIS Work Phone: Plan of Treatment Date Care Activity Detail Author Start: 04-21-2027 Urine microalbumin profile [facility] Start: 08-03-2025 GC (Gonorrhea) Scree chaparro () GC (Gonorrhea) Screening () [facility] Start: 08-03-2025 Screening for Chlamy jeffry trachomatis Chlamydia Screening () [facility] Start: 05-05-2025 Influenza vaccination Influenza Vacc ine (#1) [facility] Start: 02-04-2025 Anaerobic Culture Anaerobic Culture [facility] Start: 02-04-2025 Microbial culture, routine Wound Culture [facility] Start: 02-04-2025 Source specific culture [facility] Start: 05-05-2024 Covid-19 Vaccine ( season) Covid-19 Vaccine ( season) [facility] Start: 05-05-2024 Influenza vaccination Influenza Vacc ine (#1) [facility] Start: 06-10-2023 Adult depression screening assessment DEPRESSION SCREENING [facility] Start: 05-05-2023 Influenza vaccination INFLUENZA (#1) [facility] Start: 04-20-2023 Blood chemistry [facility] Start: 04-20-2023 Thyroid stimulating hormone measurement [facility] Start: 04-20-2023 [facility] Start: 09-04-2022 DEPRESSION ASSESSMENT DEPRESSION ASS ESSMENT [facility] Start: 2022 Anxiety Screening Anxiety Screening [facility] Start: 2022 CHLAMYDIA SCREENING (18-24) CHLAMYDIA SCREENING (18-24) [facility] Start: 2022 GC (GONORRHEA) SCREE CHAPARRO (18-24) GC (GONORRHEA) SCREENING (18-24) [facility] Start: 2022 HEPATITIS C SCREENING HEPATITIS C [facility] Start: 2022 Hepatitis C screening Hepatitis C [facility] Start: 2022 HIV SCREENING HIV SCREENING [facility] Start: 2022 HIV screening HIV Screening [facility] Start: 2022 Screening for Chlamy jeffry trachomatis Chlamydia Screening (18-) [facility] Start: 05-05-2022 Influenza vaccination INFLUENZA (#1) [facility] Start: 2020 Meningococcal B Vacc ine (1 of 2 - Standard) Meningococcal B Vaccine (1 of 2 - Standard) [facility] Start: 2020 Meningococcal B Vacc ine: Consider Based On Risk (1 of 2 - Patient Seeks Protection) Meningococcal B Vaccine: Consider Based On Risk (1 of 2 - Patient Seeks Protection) [facility] Start: 2020 MENINGOCOCCAL B: Consider based on risk (1 of 2 - Patient Seeks Protection) MENINGOCOCCAL B: Consider based on risk (1 of 2 - Patient Seeks Protection) [facility] Start: 05-05-2020 Influenza vaccination INFLUENZA (#1) [facility] Start: 2019 CHLAMYDIA SCREENING (<18) CHLAMYDIA SCREENING (<18) [facility] Start: 2019 GC (GONORRHEA) SCREE CHAPARRO (<18) GC (GONORRHEA) SCREENING (<18) [facility] Start: 2019 HPV Vaccine (1 - 3-d ose series) HPV Vaccine (1 - 3-dose series) [facility] Start: 2018 PEDS TO ADULT TRANSI TION ANNUAL ASSESSMENT PEDS TO ADULT TRANSITION ANNUAL ASSESSMENT [facility] Start: 2016 PHQ-A PHQ-A [facility] Start: 2015 HPV VACCINE (1 - 2-d ose series) HPV VACCINE (1 - 2-dose series) [facility] Start: 2015 MENINGOCOCCAL CONJUG ATE (1 - 2-dose series) MENINGOCOCCAL CONJUGATE (1 - 2-dose series) [facility] Start: 2015 Urine microalbumin profile DTAP,TDAP,TD (6 - Tdap) [facility] Start: 2014 MENINGOCOCCAL B: Consider based on risk (1 of 2 - Risk Bexsero 2-dose series) MENINGOCOCCAL B: Consider based on risk (1 of 2 - Risk Bexsero 2-dose series) [facility] Start: 2013 HPV VACCINE (1 - 2-d ose series) HPV VACCINE (1 - 2-dose series) [facility] Start: 02-15-2005 COVID-19 VACCINE (#1) COVID-19 VACCI NE (#1) [facility] Bacteria identified in Unspecified specimen by Anaerobe culture [facility] Bacteria identified in Urine by Culture BACTERIAL CULTURE, URINE Microbiology Routine Burning with urination 05/06/2025 11:31 AM EDT [facility] Work Phone: BACTERIAL VAGINOSIS NAAT BACTERI AL VAGINOSIS NAAT Lab Routine Vaginal discharge Ordered: 08/03/2024 [facility] Comment on above: Ordered: 08/03/2024 BACTERIAL VAGINOSIS NAAT BACTERI AL VAGINOSIS NAAT Lab Routine Acute vaginitis Ordered: 08/25/2024 [facility] Comment on above: Ordered: 08/25/2024 LUZ/TRICHOMONAS NAAT LUZ /TRICHOMONAS NAAT Lab Routine Vaginal discharge Ordered: 08/03/2024 [facility] Work Phone: Comment on above: Ordered: 08/03/2024 LUZ/TRICHOMONAS NAAT LUZ /TRICHOMONAS NAAT Lab Routine Acute vaginitis Ordered: 08/25/2024 [facility] Work Phone: Comment on above: Ordered: 08/25/2024 LUZ/TRICHOMONAS NAAT LUZ /TRICHOMONAS NAAT Lab Routine Vaginal itching 05/06/2025 11:31 AM EDT [facility] Chlamydia trachomatis+Neisseria gonorrhoeae DNA [Presence] in Unspecified specimen by SHAILA with probe detection GONORRHEA/CHLAMYDIA NAAT Lab Routine Vaginal discharge Ordered: 08/03/2024 [facility] Comment on above: Ordered: 08/03/2024 COVID & INFLUENZA A/ B & RSV PCR, ROUTINE COVID & INFLUENZA A/B & RSV PCR, ROUTINE Microbiology Routine Viral illness Ordered: 10/18/2024 [facility] Work Phone: Comment on above: Ordered: 10/18/2024 Patient Education ED Palpitations [facility] Work Phone: Patient referral [facility] Work Phone: XR Abdomen Supine an d Upright XR ABDOMEN 1V SUPINE Radiology Routine Functional constipation 05/01/2025 11:05 AM EDT [facility] Work Phone: [facility] Immunizations Immunization Date Immunization Notes Care Provider [facility] 06-10-2022 meningococcal (MenACWY-TT) vaccine, quadrivalent (MENQUADFI) Karey Felix APRN.CLOTH INSPECTOR Work Phone: [facility] 04-21-2017 meningococcal oligosaccharide (groups A, C, Y and W-135) diphtheria toxoid conjugate vaccine (MCV4O) Karey Felix TIERCE FILLER.CLOTH INSPECTOR Work Phone: [facility] 04-21-2017 tetanus toxoid, redu maile diphtheria toxoid, and acellular pertussis vaccine, adsorbed Karey Felix TIERCE FILLER.CLOTH INSPECTOR Work Phone: [facility] 07-16-2011 influenza virus vacc ine, live, attenuated, for intranasal use [facility] 07-16-2011 influenza virus vacc ine, unspecified formulation [facility] Work [facility]: [facility] 08-31-2010 influenza virus vacc ine, live, attenuated, for intranasal use [facility] Work Phone: 04-16-2010 diphtheria, tetanus toxoids and acellular pertussis vaccine [facility] Work Phone: 04-16-2010 measles, mumps and rubella virus vaccine [facility] Work Phone: 04-16-2010 poliovirus vaccine, inactivated [facility] Work Phone: 04-16-2010 varicella virus vaccine [facility] Work Phone: 06-04-2009 influenza virus vacc ine, live, attenuated, for intranasal use [facility] Work Phone: 02-15-2006 DTaP-hepatitis B and poliovirus vaccine [facility] Work Phone: 02-15-2006 haemophilus influenz ae type b vaccine, HbOC conjugate [facility] Work Phone: 09-08-2005 measles, mumps and rubella virus vaccine [facility] Work Phone: 09-08-2005 varicella virus vaccine [facility] Work Phone: 02-17-2005 DTaP-hepatitis B and poliovirus vaccine [facility] Work Phone: 2004 diphtheria, tetanus toxoids and acellular pertussis vaccine [facility] Work Phone: 2004 haemophilus influenz ae type b vaccine, HbOC conjugate [facility] Work Phone: 2004 poliovirus vaccine, inactivated [facility] Work Phone: 2004 diphtheria, tetanus toxoids and acellular pertussis vaccine [facility] Work Phone: 2004 haemophilus influenz ae type b vaccine, HbOC conjugate [facility] Work Phone: 2004 poliovirus vaccine, inactivated [facility] Work Phone: 2004 hepatitis B vaccine, pediatric or pediatric/adolescent dosage [facility] Work Phone: 2004 hepatitis B vaccine, pediatric or pediatric/adolescent dosage [facility] Work Phone: Payers Date Payer Category Payer [facility] [id number] 2025 Unknown [id number] 2024 Self-pay [id number] 2023 Private Health Insurance [id number] 2021 Private Health Insurance [id number] Medicaid [id number] Private Health Insurance [id number] Unknown [id number] Unknown [id number] Unknown [id number] Unknown [id number] Unknown [id number] Unknown [id number] Social History Date Type Detail Facility Start: 03-14-2016 End: 06-10-2022 Tobacco smoking status NHIS Never smoker [facility] Start: 03-14-2016 End: 06-10-2022 Tobacco use and exposure [facility] Start: 03-14-2016 End: 05-01-2025 Alcohol intake Not Asked [facility] Start: 2004 Sex Assigned At Not on file C [facility] Start: 2004 Sex Assigned At Female W [facility] Start: 06-10-2022 History SDOH Physica l Activity DPW 3 [facility] Start: 06-10-2022 History SDOH Physica l Activity MPS 6 [facility] Start: 06-10-2022 History SDOH Financial 4 [facility] Start: 06-10-2022 History SDOH Food Worry 2 [facility] Start: 06-10-2022 History SDOH Housing Places Lived 1 [facility] Start: 05-31-2022 End: 06-10-2022 Exposure to SARS-CoV-2 (event) Not sure [facility] Start: 06-10-2022 End: 04-25-2023 History of Social function [facility] Start: 06-10-2022 End: 04-25-2023 Tobacco use panel [facility] How hard is it for y ou to pay for the very basics like food, housing, medical care, and heating Not very hard [facility] (I/We) worried deanna er (my/our) food would run out before (I/we) got money to buy more. Sometimes true [facility] Start: 08-05-2012 In the past 12 month s, has lack of transportation kept you from medical appointments or from getting medications? No [facility] In the past 12 month s, was there a time when you were not able to pay the mortgage or rent on time? No [facility] Start: 04-20-2023 Tobacco smoking stat us TXIS Unknown if ever smoked [facility] NEGATED: Highlighted rowStart: NINF History of tobacco use Passive smoker [facility] NEGATED: Highlighted row [facility] Functional Status Date Assessment Result Facility 04-11-2015 Are you deaf, or do you have serious difficulty hearing No 04/11/2015 3:57 PM EDT Lorena Tolbert LPN No [facility] 04-11-2015 Are you blind, or do you have serious difficulty seeing, even when wearing glasses No 04/11/2015 3:57 PM EDT Lorena Tolbert LPN No [facility] 04-11-2015 Do you have serious difficulty walking or climbing stairs No 04/11/2015 3:57 PM EDT Lorena Tolbert LPN No [facility] 04-11-2015 Do you have difficul ty dressing or bathing No 04/11/2015 3:57 PM EDT Lorena Tolbert LPN No [facility] Mental Status Date Assessment Result Facility 04-20-2023 Cognitive function Voice/Name [facility] Work Phone: 04-11-2015 Because of a physica l, mental, or emotional condition, do you have serious difficulty concentrating, remembering, or making decisions No 04/11/2015 3:57 PM EDT Lorena Tolbert LPN [facility] Clinical Notes 05-15-2013 to 05-07-2025 Telephone Encounter - Carey Tolbert APRN.MILENA - 05/07/2025 2:10 PM EDTTelephone Encounter - Carey Tolbert APRN.MILENA - 05/07/2025 2:10 PM EDTCarey Tolbert APRN.CNP - 05/06/2025 11:23 AM EDT Note Date & Type Note Facility 05-07-2025 Telephone encounter Note Urine culture was negative. [facility] Work Phone: 05-07-2025 Miscellaneous Notes Urine culture was negative. Patient given results and verbalized understanding of instructions given. Mary Osman MA ----- Message from Carey Tolbert APRN.CNP sent at 05/07/2025 8:14 AM EDT ----- ----- Message ----- From: Interface, Telcor Oru Ib Sent: 05/06/2025 11:17 AM EDT To: [facility] Provider [place] Patient was positive for yeast. Negative for bacterial vaginosis and trichomonas. Please let patient know she already had treatment with the Diflucan if symptoms persist follow-up with RESEARCH AND DEVELOPMENT RESEARCHER still waiting on urine culture documented in this encounter [facility] 05-07-2025 Telephone encounter Note Patient given results and verbalized understanding of instructions given. Mary Osman MA [facility] 05-07-2025 Telephone encounter Note ----- Message from Carey Tolbert APRN.CLOTH INSPECTOR sent at 05/07/2025 8:14 AM EDT ----- ----- Message ----- From: Chante, Telcor Oru Ib Sent: 05/06/2025 11:17 AM EDT To: [facility] 05-07-2025 Telephone encounter Note Patient was positive for yeast. Negative for bacterial vaginosis and trichomonas. Please let patient know she already had treatment with the Diflucan if symptoms persist follow-up with RESEARCH AND DEVELOPMENT RESEARCHER still waiting on urine culture [facility] 05-06-2025 Note HNO ID: [id number] Author: CAREY TOLBERT APRN.MILENA Service: ? Author Type: Nurse Practitioner Type: Progress Notes Filed: 05/06/2025 11:24 Note Text: URGENT CARE HAILEY Daley is a 19 year old female. Patient presents with: Urinary Problem: burning with urination x this am, has had diarrhea, ? yeast also HPI The patient is a 19-year-old female presenting with dysuria and vulvar discomfort. Dysuria and Vulvar Discomfort: - Onset today. - Burning sensation during urination and while sitting. - Localized discomfort to the inside and possibly the opening of the vagina. - Noted redness; denies pruritus. - No discharge observed today. - Denies unprotected sexual intercourse. - History of yeast infection in August of last year, treated with Monistat. - Denies history of bacterial vaginosis. - Currently using Miralax for constipation management. Review of Systems Gastrointestinal: (+) constipation Genitourinary: (+) dysuria, (+) vaginal pruritus, (+) vulvar erythema, (-) vaginal discharge Objective BP 102/60 Pulse 110 Temp 37.1 ?C (98.8 ?F) Resp 16 Wt 37.8 kg (83 lb 5.3 oz) LMP 04/10/2025 (Approximate) SpO2 96% BMI 16.36 kg/m? Physical Exam General: No acute distress. Resp: Lungs clear to auscultation bilaterally. Abd: No tenderness to palpation. { 1. Burning with urination (R30.0) 2. Vaginal itching (N89.8) - Acute onset of dysuria and vaginal pruritus with erythema; no discharge noted today. - Previous similar episode diagnosed as yeast infection in August of last year. - No reported unprotected sexual activity; low risk for STDs. - Differential includes yeast infection, bacterial vaginosis, and UTI. - Urinalysis does not indicate UTI; urine culture ordered to confirm. - Vaginal swab obtained for yeast, bacterial vaginosis, and trichomonas testing. - Discussed differences in treatment for yeast infection vs. bacterial vaginosis; patient agreed to testing for both. - Start single-dose oral antifungal treatment. - Advised that if cultures are positive for bacterial vaginosis or other infections, appropriate antibiotics will be added. - Educated on potential causes of yeast infections and advised to seek RESEARCH AND DEVELOPMENT RESEARCHER evaluation if infections become more frequent. and Recording using Sympler software for draft documentation of the visit was discussed with the patient/authorized circulation sales representative; all questions welcomed and answered. Patient/authorized circulation sales representative agreed to proceed MDM Procedures [facility] 05-06-2025 History of Presen t illness Narrative URGENT CARE HAILEY Daley is a 19 year old female. Patient presents with: Urinary Problem: burning with urination x this am, has had diarrhea, ? yeast also HPI The patient is a 19-year-old female presenting with dysuria and vulvar discomfort. Dysuria and Vulvar Discomfort: - Onset today. - Burning sensation during urination and while sitting. - Localized discomfort to the inside and possibly the opening of the vagina. - Noted redness; denies pruritus. - No discharge observed today. - Denies unprotected sexual intercourse. - History of yeast infection in August of last year, treated with Monistat. - Denies history of bacterial vaginosis. - Currently using Miralax for constipation management. Review of Systems Gastrointestinal: (+) constipation Genitourinary: (+) dysuria, (+) vaginal pruritus, (+) vulvar erythema, (-) vaginal discharge Objective BP 102/60 Pulse 110 Temp 37.1 C (98.8 F) Resp 16 Wt 37.8 kg (83 lb 5.3 oz) LMP 04/10/2025 (Approximate) SpO2 96% BMI 16.36 kg/m Physical Exam General: No acute distress. Resp: Lungs clear to auscultation bilaterally. Abd: No tenderness to palpation. { 1. Burning with urination (R30.0) 2. Vaginal itching (N89.8) - Acute onset of dysuria and vaginal pruritus with erythema; no discharge noted today. - Previous similar episode diagnosed as yeast infection in August of last year. - No reported unprotected sexual activity; low risk for STDs. - Differential includes yeast infection, bacterial vaginosis, and UTI. - Urinalysis does not indicate UTI; urine culture ordered to confirm. - Vaginal swab obtained for yeast, bacterial vaginosis, and trichomonas testing. - Discussed differences in treatment for yeast infection vs. bacterial vaginosis; patient agreed to testing for both. - Start single-dose oral antifungal treatment. - Advised that if cultures are positive for bacterial vaginosis or other infections, appropriate antibiotics will be added. - Educated on potential causes of yeast infections and advised to seek RESEARCH AND DEVELOPMENT RESEARCHER evaluation if infections become more frequent. and Recording using Sympler software for draft documentation of the visit was discussed with the patient/authorized circulation sales representative; all questions welcomed and answered. Patient/authorized circulation sales representative agreed to proceed MDM Procedures documented in this encounter [facility] 05-01-2025 History of Presen t illness Narrative Radiology Service Progress Note PATIENT NAME: Nancy Daley DATE OF SERVICE: May 01, 2025 TIME: 11:06 AM PATIENT IDENTITY VERIFICATION COMPLETED USING TWO (2) IDENTIFIERS: Name and Date of confirmed by patient verbally. FALL SCREENING: Has the patient had 2 falls in the last year or 1 fall with injury or currently using an Ambulatory Assistive Device (Walker, Cane, Wheelchair, Crutches, etc.)? No PATIENT GENDER DATA: Assigned female at . status: : No status: NO. PATIENT RELEVANT IMPLANT DATA REVIEWED: Not Applicable PATIENT PRESENTS WITH AN IMPLANTABLE OR ATTACHED BOX CAR CHECKER: No RADIOLOGY DEPARTMENT: General X-ray: Exam(s) Completed: Abdomen X-Ray: Abdomen PERIPHERAL IV DATA: Not applicable SIGNED BY: RT Fernanda(Miko) May 01, 2025 11:06 AM documented in this encounter [facility] 05-01-2025 Note HNO ID: [id number] Author: JIMMIE STOVER RT(Miko) Service: ? Author Type: Technologist Type: Progress Notes Filed: 05/01/2025 11:06 Note Text: Radiology Service Progress Note PATIENT NAME: Nancy Daley DATE OF SERVICE: May 01, 2025 TIME: 11:06 AM PATIENT IDENTITY VERIFICATION COMPLETED USING TWO (2) IDENTIFIERS: Name and Date of confirmed by patient verbally. FALL SCREENING: Has the patient had 2 falls in the last year or 1 fall with injury or currently using an Ambulatory Assistive Device (Walker, Cane, Wheelchair, Crutches, etc.)? No PATIENT GENDER DATA: Assigned female at . status: : No status: NO. PATIENT RELEVANT IMPLANT DATA REVIEWED: Not Applicable PATIENT PRESENTS WITH AN IMPLANTABLE OR ATTACHED BOX CAR CHECKER: No RADIOLOGY DEPARTMENT: General X-ray: Exam(s) Completed: Abdomen X-Ray: Abdomen PERIPHERAL IV DATA: Not applicable SIGNED BY: RT Fernanda(R) May 01, 2025 11:06 AM [facility] 05-01-2025 Note HNO ID: [id number] Author: MARY LEMUS MD Service: ? Author Type: Physician Type: Progress Notes Filed: 05/23/2025 00:17 Note Text: PEDIATRIC SICK VISIT SUBJECTIVE: Nancy Daley is a 19 year old accompanied by mother. She has been having issues with constipation since December. She has been seen at the [facility]. Mother felt it this morning. She still hasn't gone normally. She went 2 days ago and hasn't gone since. Stools are Irvona 1-2. She has seen mucus but denies blood. It is hard to pass the stool and only a small amount comes out. She went a week once without anything. LLQ lump. She eats [employer], [employer]. She has slowed down since she has had this issue. She works second shift. She is eating 2-3 meals a day. She usually doesn't eat meat unless it is in a taco. She eats a lot of carbohydrates. Mother has been trying to give her celery juice. She was struggling to get urine out for a little but now she is able to get the urine out normally. She gets bad cramps with her periods but she denies heavy bleeding. She used to be on OCP but not currently. She does get nauseated from the belly pain and vomited once. No family history of Crohn's Disease, UC, Colon Cancer. No known paternal side history. History was obtained from: patient and EMR Nancy Daley is a 19-year-old female, accompanied by her mother, presenting with a palpable abdominal mass and constipation. Nancy reports a hard, painful mass in the lower left abdomen, described as causing significant pressure and resembling an air bubble. The mass was first noticed in December, coinciding with the onset of constipation. Nancy's mother palpated the mass for the first time this morning. Nancy has been experiencing constipation since December, with bowel movements occurring every few days. Recently, she went a week without a bowel movement, necessitating the use of suppositories. Her stools are described as hard, small, round balls, with occasional mucus but no blood. She denies a history of constipation prior to December. She has been using Miralax 17 grams, sometimes twice daily, without significant improvement. She has also been taking stool softener gummies and celery juice, which have provided some relief. She denies taking any other supplements or vitamins. Nancy has a diet high in carbohydrates and low in protein, with frequent consumption of fast food. She is a vegetarian, consuming minimal meat. She reports a decreased appetite and sometimes avoids eating due to fear of exacerbating her symptoms. She denies any issues with urination. Nancy has a history of dysmenorrhea, with regular menstrual cycles and no current use of control. She experienced one episode of emesis due to abdominal pain when she was really backed up. She denies any family history of Crohn's disease, ulcerative colitis, or colon cancer. HISTORY: ACTIVE PROBLEM LIST (none) - all problems resolved or deleted PAST MEDICAL HISTORY Diagnosis Date NEGATIVE MEDICAL HISTORY PMH - PAST MEDICAL HISTORY OF 05/24/10 normal color vision PAST SURGICAL HISTORY Procedure Laterality Date NONE Allergies: ALLERGIES No Known Allergies Medications: SPRINTEC 0.25-35 mg-mcg per tablet Take 1 tablet by mouth once daily. (Patient not taking: Reported on 05/01/2025) Benzoyl Peroxide 5 % external wash Apply 1 application to affected area every morning. (Patient not taking: Reported on 05/01/2025) tretinoin (RETIN-A) 0.1 % cream Apply 1 application to affected area daily at bedtime. (Patient not taking: Reported on 05/01/2025) OBJECTIVE: BP 118/70 Pulse 96 Temp 36.4 ?C (97.5 ?F) (Temporal Artery) Resp 16 Ht 152 cm (4' 11.84) Wt 37.9 kg (83 lb 8.9 oz) LMP 04/20/2025 (Approximate) BMI 16.40 kg/m? Constitutional: Well-nourished, in no acute distress Head: Normocephalic, atraumatic Eyes: Normal appearing eyes and eyelids Ears: Tympanic membranes clear Nose: No nasal congestion Throat/Oral: Oropharynx clear without erythema or edema, mucous membranes moist Neck: Supple, no significant lymphadenopathy Cardiovascular: Regular rate and rhythm, no murmurs Respiratory: Clear to auscultation bilaterally, comfortable work of breathing Chest: Normal shape and expansion Gastrointestinal: Soft, with mild tenderness in the lower left quadrant, palpable mass in the lower left quadrant, non-distended, no guarding Neurology: Normal strength, normal tone Dermatology: No significant rash Psychological: Normal mood, normal affect ASSESSMENT/PLAN: Encounter Diagnosis ICD-10-CM 1. Functional constipation K59.04 XR ABDOMEN 1V SUPINE 2. Abdominal pain, left lower quadrant R10.32 - Chronic constipation since December with infrequent, hard stools (Irvona 1-2), LLQ abdominal pain, and a palpable mass consistent with fecal impaction. - Differential includes hernia and ovarian cyst, but exam findings and history (more content not included)... [facility] 10-19-2024 Telephone encounter Note Patient given results and verbalized understanding of instructions given. Mary Osman MA [facility] 10-19-2024 Miscellaneous Notes Patient given results and verbalized understanding of instructions given. Mray Osman MA ----- Message from Gabino Fine APRN.CNP sent at 10/18/2024 6:36 PM EST ----- Please inform patient that she did test positive for COVID. She was negative for influenza and RSV. As she is otherwise young and healthy there is no specific treatment indicated and I recommend that she continue to use [id number] treatments such as ibuprofen or Tylenol as needed for pain and fever and follow-up closely with her family doctor. documented in this encounter [facility] 10-19-2024 Telephone encounter Note ----- Message from Gabino Fine APRN.CLOTH INSPECTOR sent at 10/18/2024 6:36 PM EST ----- Please inform patient that she did test positive for COVID. She was negative for influenza and RSV. As she is otherwise young and healthy there is no specific treatment indicated and I recommend that she continue to use [id number]-ium-ihofchn treatments such as ibuprofen or Tylenol as needed for pain and fever and follow-up closely with her family doctor. [facility] 10-18-2024 Note SARS-COV-2 (AGENT OF COVID-19) RNA: Detected INFLUENZA A RNA: Not detected INFLUENZA B RNA: Not detected RESPIRATORY SYNCYTIAL VIRUS (RSV) RNA: Not detected [facility] Comment on above: Performed By: #### [id number] ####[facility] LABCLIA [id number] [address] [place] 10-18-2024 Instructions Griffin Benton APRN.MILENA - 10/18/2024 8:51 AM EST How to Manage Common Symptoms Associated with COVID for Adults Fever- Fever is a temperature over 100.4 F and can occur when the body is fighting an infection. To help treat a fever: Drink plenty of fluids and stay well hydrated. Eat small amounts of easy to digest food. Rest. Your body needs rest to recover, but getting up and moving around the house frequently is a good idea. You should try to continue doing your normal daily activities (bathing, toileting, grooming, cooking), though you will probably feel tired, and need to rest often. Avoid any heavy activity or exercise, as this will increase your body temperature. Dress in light clothing and stay covered in a light sheet. Keep the room temperature cool. Take a slightly warm (not cold or cool) bath, or apply damp washcloths to the forehead and wrists. Cough- Cough is a common symptom associated with COVID and can be bothersome. To help treat a cough: Stay well hydrated. Try warm water or tea with lemon and/or honey to help soothe the cough. Use a humidifier to add moisture to the air. Try a product with menthol, like a cough drop or a rub for your chest such as Vicks, which can help reduce cough. Try cough drops. Avoid smoking and other strong odors or perfumes. Try breathing exercises to keep your lungs open and clear. Take a big deep breath through your nose and hold for 5 seconds before slowly releasing. Repeat frequently, while you are awake. Congestion- Runny nose or nasal congestion can occur with COVID. Treatment can help relieve symptoms: Try OTC nasal saline spray, or nasal saline rinse to relieve mucus congestion. Nasal strips can help keep nasal passages open, to increase airflow. Elevating your head with an extra pillow in bed can help reduce congestion. Using a humidifier can increase moisture in the air, and make breathing easier. Sore Throat- Another common symptom with COVID, can be managed at home by: Stay well hydrated. Gargle with salt water - mix teaspoon salt with 1 cup of warm water and gargle. This helps to loosen mucus in the back of the throat and may reduce discomfort. Try ice chips, popsicles or lozenges to soothe the throat. Nausea/Vomiting/Diarrhea- These are common symptoms, and staying hydrated is most important. If you are nauseous or vomiting, start with small sips of water every 10-15 minutes and increase as tolerated. You can try sucking an ice cube too. If tolerating, you can try pedialyte or Gatorade, or flat sprite or akbar-maia. Start slowly and increase as you are able to. Instead of meals, try smaller, more frequent snacks. Try eating bland foods like crackers, toast, rice, and applesauce. Avoid spicy, greasy or fried foods and dairy containing foods. Even if you aren't feeling hungry due to lack of smell or taste, it is important to try to take in some food when you are able. After drinking and eating, rest in an upright position for up to two hours as needed to help decrease nauseous feelings. Try closing your eyes, avoid moving and watching TV. Avoid strong odors that can make you feel more nauseated. When to seek emergency medical attention Look for emergency warning signs for COVID-19. If having any of these symptoms, seek emergency medical care immediately: Trouble breathing Persistent pain or pressure in the chest New confusion Inability to wake or stay awake Bluish lips or face *This list is not all possible symptoms. Please call your medical provider for any other symptoms that are severe or concerning to you. documented in this encounter [facility] 10-18-2024 Note HNO ID: [id number] Author: GRIFFIN BENTON APRN.CNP Service: ? Author Type: Nurse Practitioner Type: Progress Notes Filed: 10/18/2024 09:23 Note Text: Subjective HPI Patient presents to urgent care with chief complaint of upper respiratory tract like infection. Duration of symptoms 2 days. Associated symptoms sore throat, nasal congestion, nasal discharge and nonproductive cough. Patient denies the use of any tdsm-wpk-nxciszn medications or home remedies for symptom management. Patient states recent sick contacts with similar signs and symptoms. Patient denies any productive cough, fever, chest pain, shortness of breath, pleuritic pain, rash, abdominal pain, nausea, vomiting or change in bowel or bladder habit. Past medical history prescription medications allergies reviewed. .Patient presents with: Fever: Cough, SOB, ears clogged, bodyaches, headache, sore throat x 2 days PAST MEDICAL HISTORY Diagnosis Date NEGATIVE MEDICAL HISTORY [facility] - PAST MEDICAL HISTORY OF 05/24/10 normal color vision PAST SURGICAL HISTORY Procedure Laterality Date NONE ALLERGIES Patient has no known allergies. MEDICATIONS SPRINTEC 0.25-35 mg-mcg per tablet Take 1 tablet by mouth once daily. Benzoyl Peroxide 5 % external wash Apply 1 application to affected area every morning. (Patient not taking: Reported on 10/18/2024) tretinoin (RETIN-A) 0.1 % cream Apply 1 application to affected area daily at bedtime. (Patient not taking: Reported on 10/18/2024) FAMILY HISTORY Problem Relation Age of Onset Hypertension Maternal Grandmother Social History Tobacco Use Smoking status: Never Passive exposure: Never Smokeless tobacco: Never BP 116/88 Pulse 109 Temp 36.5 ?C (97.7 ?F) Resp 20 Wt 40 kg (88 lb 2.9 oz) LMP 10/18/2024 (Exact Date) SpO2 99% Review of Systems Constitutional: Positive for chills, fever and malaise/fatigue. HENT: Positive for congestion and sore throat. Negative for ear discharge, ear pain and sinus pain. Eyes: Negative for blurred vision, pain, discharge and redness. Respiratory: Positive for cough. Negative for hemoptysis, sputum production, shortness of breath, wheezing and stridor. Cardiovascular: Negative for chest pain. Gastrointestinal: Negative for abdominal pain, diarrhea, nausea and vomiting. Musculoskeletal: Positive for myalgias. Skin: Negative for itching and rash. Neurological: Positive for headaches. Negative for dizziness. Objective Physical Exam HENT: Head: Normocephalic. Jaw: No trismus, tenderness, swelling or pain on movement. Left Ear: Ear canal normal. Nose: Congestion present. Mouth/Throat: Mouth: Mucous membranes are moist. Pharynx: Oropharynx is clear. Uvula midline. No oropharyngeal exudate or posterior oropharyngeal erythema. Eyes: Pupils: Pupils are equal, round, and reactive to light. Cardiovascular: Rate and Rhythm: Normal rate. Pulmonary: Effort: Pulmonary effort is normal. No accessory muscle usage, respiratory distress or retractions. Breath sounds: No stridor. No wheezing, rhonchi or rales. Abdominal: Palpations: Abdomen is soft. Tenderness: There is no abdominal tenderness. There is no guarding or rebound. Musculoskeletal: Cervical back: No erythema or tenderness. No pain with movement. Normal range of motion. Lymphadenopathy: Cervical: No cervical adenopathy. Neurological: General: No focal deficit present. Mental Status: She is alert and oriented to person, place, and time. Mental status is at baseline. ASSESSMENT/PLAN: 1. Viral illness - ICD9: 079.99, ICD10: B34.9 - Discussed viral etiology and rationale for treatment. - Symptomatic treatment with prn analgesia - Supportive care with fluids and rest - COVID AND INFLUENZA A/B AND RSV PCR, ROUTINE Patient was educated on supportive therapies. Patient will follow up with primary care provider as needed. Patient was instructed to immediately proceed to emergency room for any new, worsening, or symptoms lasting longer than anticipated. The patient's clinical presentation is otherwise unremarkable at this time. Based on exam and clinical finding, the patient is stable for discharge. Plan of care was discussed with patient. Patient verbalizes understanding and agrees to plan of care. This note was generated using Great[employer] software. It may contain errors in wording, punctuation, or spelling. Griffin Benton APRN.[facility] 10-18-2024 History of Presen t illness Narrative Subjective HPI Patient presents to urgent care with chief complaint of upper respiratory tract like infection. Duration of symptoms 2 days. Associated symptoms sore throat, nasal congestion, nasal discharge and nonproductive cough. Patient denies the use of any tiur-ury-rmhhaef medications or home remedies for symptom management. Patient states recent sick contacts with similar signs and symptoms. Patient denies any productive cough, fever, chest pain, shortness of breath, pleuritic pain, rash, abdominal pain, nausea, vomiting or change in bowel or bladder habit. Past medical history prescription medications allergies reviewed. .Patient presents with: Fever: Cough, SOB, ears clogged, bodyaches, headache, sore throat x 2 days PAST MEDICAL HISTORY Diagnosis Date NEGATIVE MEDICAL HISTORY PM[facility] - PAST MEDICAL HISTORY OF 05/24/10 normal color vision PAST SURGICAL HISTORY Procedure Laterality Date NONE ALLERGIES Patient has no known allergies. MEDICATIONS SPRINTEC 0.25-35 mg-mcg per tablet Take 1 tablet by mouth once daily. Benzoyl Peroxide 5 % external wash Apply 1 application to affected area every morning. (Patient not taking: Reported on 10/18/2024) tretinoin (RETIN-A) 0.1 % cream Apply 1 application to affected area daily at bedtime. (Patient not taking: Reported on 10/18/2024) FAMILY HISTORY Problem Relation Age of Onset Hypertension Maternal Grandmother Social History Tobacco Use Smoking status: Never Passive exposure: Never Smokeless tobacco: Never BP 116/88 Pulse 109 Temp 36.5 C (97.7 F) Resp 20 Wt 40 kg (88 lb 2.9 oz) LMP 10/18/2024 (Exact Date) SpO2 99% Review of Systems Constitutional: Positive for chills, fever and malaise/fatigue. HENT: Positive for congestion and sore throat. Negative for ear discharge, ear pain and sinus pain. Eyes: Negative for blurred vision, pain, discharge and redness. Respiratory: Positive for cough. Negative for hemoptysis, sputum production, shortness of breath, wheezing and stridor. Cardiovascular: Negative for chest pain. Gastrointestinal: Negative for abdominal pain, diarrhea, nausea and vomiting. Musculoskeletal: Positive for myalgias. Skin: Negative for itching and rash. Neurological: Positive for headaches. Negative for dizziness. Objective Physical Exam HENT: Head: Normocephalic. Jaw: No trismus, tenderness, swelling or pain on movement. Left Ear: Ear canal normal. Nose: Congestion present. Mouth/Throat: Mouth: Mucous membranes are moist. Pharynx: Oropharynx is clear. Uvula midline. No oropharyngeal exudate or posterior oropharyngeal erythema. Eyes: Pupils: Pupils are equal, round, and reactive to light. Cardiovascular: Rate and Rhythm: Normal rate. Pulmonary: Effort: Pulmonary effort is normal. No accessory muscle usage, respiratory distress or retractions. Breath sounds: No stridor. No wheezing, rhonchi or rales. Abdominal: Palpations: Abdomen is soft. Tenderness: There is no abdominal tenderness. There is no guarding or rebound. Musculoskeletal: Cervical back: No erythema or tenderness. No pain with movement. Normal range of motion. Lymphadenopathy: Cervical: No cervical adenopathy. Neurological: General: No focal deficit present. Mental Status: She is alert and oriented to person, place, and time. Mental status is at baseline. ASSESSMENT/PLAN: 1. Viral illness - ICD9: 079.99, ICD10: B34.9 - Discussed viral etiology and rationale for treatment. - Symptomatic treatment with prn analgesia - Supportive care with fluids and rest - COVID & INFLUENZA A/B & RSV PCR, ROUTINE Patient was educated on supportive therapies. Patient will follow up with primary care provider as needed. Patient was instructed to immediately proceed to emergency room for any new, worsening, or symptoms lasting longer than anticipated. The patient's clinical presentation is otherwise unremarkable at this time. Based on exam and clinical finding, the patient is stable for discharge. Plan of care was discussed with patient. Patient verbalizes understanding and agrees to plan of care. This note was generated using Greats software. It may contain errors in wording, punctuation, or spelling. Griffin Benton APRN.MILENA documented in this encounter [facility] 10-16-2024 Evaluation note Diagnosis Onset Date Resolution Abdominal pain acute October 052024 12:56pm Acute pharyngitis, unspecified acute October 16 12:56pm Contact with or exposure to other viral diseases acute October 16 12:56pm Low back pain acute October 162024 12:56pm [facility] Work Phone: 1(702) 231-856212-26-2024 Telephone encounter Note* Telephone Encounter - Estefani Cano RN - 08/29/2024 9:57 AM EST Patient calls and notified of results and providers instructions. Patient verbalizes understanding. Estefani Cano RN [facility]12-26-2024 Miscellaneous Notes* Telephone Encounter - Estefani Cnao RN - 08/29/2024 9:57 AM EST Patient calls and notified of results and providers instructions. Patient verbalizes understanding. Estefani Cano RN * Telephone Encounter - Mary Osman MA - 08/29/2024 8:48 AM EST Left message for patient to return call. Mary Osman MA * Telephone Encounter - Maria Ines Boyer MA - 08/26/2024 9:12 AM EST Unable to reach patient. Left VM to return call to office. Please read below and advise. Maria Ines Boyer MA * Telephone Encounter - Carey Tolbert APRN.CNP - 08/26/2024 7:57 AM EST Patient was negative for yeast, trichomonas, bacterial vaginosis. Patient should follow-up with [facility] PCP if symptoms persist [facility] Telephone encounter Note * Telephone Encounter - Mary Osman MA - 08/29/2024 8:48 AM EST Left message for patient to return call. Mary Osman MA [facility]12-23-2024 Telephone encounter Note* Telephone Encounter - Maria Ines Boyer MA - 08/26/2024 9:12 AM EST Unable to reach patient. Left VM to return call to office. Please read below and advise. Maria Ines Boyer MA [facility]12-23-2024 Telephone encounter Note* Telephone Encounter - Carey Tolbert APRN.MILENA - 08/26/2024 7:57 AM EST Patient was negative for yeast, trichomonas, bacterial vaginosis. Patient should follow-up with [facility] PCP if symptoms persist [facility] Work Phone: 1(394) 726-790612-22-2024 NoteHNO ID: [id number] Author: GABRIELA MCCLURE APRN.CLOTH INSPECTOR Service: ? Author Type: Nurse Practitioner Type: Progress Notes Filed: 08/25/2024 10:08 Note Text: Subjective The history is provided by the patient. No logistics director was used. EBONI Daley is a 19 year old female who presents today for CC of vaginal discharge and itching. This started 3 days ago. She started using monistat without relief. She is sexaully active, had std testing 2 weeks ago, no new partners refused testing today. Will self swab for BV, yeast, and trichomonas BP 100/76 Pulse 78 Temp 37.1 ?C (98.7 ?F) Resp 21 Wt 39.9 kg (87 lb 15.4 oz) SpO2 99% Social History Tobacco Use Smoking status: Never Passive exposure: Never Smokeless tobacco: Never PAST MEDICAL HISTORY Diagnosis Date NEGATIVE MEDICAL HISTORY [facility] - PAST MEDICAL HISTORY OF 05/24/10 normal color vision I have confirmed and edited as necessary, the [facility] Review of Systems Constitutional: Negative for chills and fever. Gastrointestinal: Negative for abdominal pain. Genitourinary: Negative for dysuria, flank pain, frequency, hematuria and urgency. Vaginal discharge and itching, denies any lesion. Objective Physical Exam Vitals and nursing note reviewed. Constitutional: Appearance: Normal appearance. Abdominal: General: Bowel sounds are normal. There is no abdominal bruit. Palpations: Abdomen is not rigid. There is no mass or pulsatile mass. Tenderness: There is no abdominal tenderness. There is no guarding or rebound. Negative signs include Mcleod's sign and McBurney's sign. Neurological: Mental Status: She is alert and oriented to person, place, and time. Psychiatric: Mood and Affect: Affect normal. ASSESSMENT/PLAN: 1. Acute vaginitis - ICD9: 616.10, ICD10: N76.0 Treated today with fluconazole Cultures done, only call if additional treatment needed Follow up with [facility] - LUZ/TRICHOMONAS NAAT - BACTERIAL VAGINOSIS NAAT Diagnosis and treatment plan were discussed and questions were answered to the patient's satisfaction. Pt acknowledged understanding of concepts and follow up plan. Specific signs and symptoms that would indicate the need for higher level of care were discussed in detail warranting prompt ER evaluation. Gab[facility] Mcclure [facility] History of Present illness Narrative* Gabriela Mcclure APRN.MILENA - 08/25/2024 10:02 AM EST Subjective The history is provided by the patient. No logistics director was used. EBONI Daley is a 19 year old female who presents today for CC of vaginal discharge and itching. This started 3 days ago. She started using monistat without relief. She is sexaully active, had std testing 2 weeks ago, no new partners refused testing today. Will self swab for BV, yeast, and trichomonas BP 100/76 Pulse 78 Temp 37.1 C (98.7 F) Resp 21 Wt 39.9 kg (87 lb 15.4 oz) SpO2 99% Social History Tobacco Use Smoking status: Never Passive exposure: Never Smokeless tobacco: Never PAST MEDICAL HISTORY Diagnosis Date NEGATIVE MEDICAL HISTORY H - PAST MEDICAL HISTORY OF 05/24/10 normal color vision I have confirmed and edited as necessary, the [facility] Review of Systems Constitutional: Negative for chills and fever. Gastrointestinal: Negative for abdominal pain. Genitourinary: Negative for dysuria, flank pain, frequency, hematuria and urgency. Vaginal discharge and itching, denies any lesion. Objective Physical Exam Vitals and nursing note reviewed. Constitutional: Appearance: Normal appearance. Abdominal: General: Bowel sounds are normal. There is no abdominal bruit. Palpations: Abdomen is not rigid. There is no mass or pulsatile mass. Tenderness: There is no abdominal tenderness. There is no guarding or rebound. Negative signs include Mcleod's sign and McBurney's sign. Neurological: Mental Status: She is alert and oriented to person, place, and time. Psychiatric: Mood and Affect: Affect normal. ASSESSMENT/PLAN: 1. Acute vaginitis - ICD9: 616.10, ICD10: N76.0 Treated today with fluconazole Cultures done, only call if additional treatment needed Follow up with [facility] - LUZ/TRICHOMONAS NAAT - BACTERIAL VAGINOSIS NAAT Diagnosis and treatment plan were discussed and questions were answered to the patient's satisfaction. Pt acknowledged understanding of concepts and follow up plan. Specific signs and symptoms that would indicate the need for higher level of care were discussed indetail warranting prompt ER evaluation. Gabriela Mcclure APRN.CLOTH INSPECTOR [facility] Telephone encounter Note * Telephone Encounter - Mag Tsai RN - 08/07/2024 8:30 AM EST Patient/family notified. Mag Tsai RN [facility]12-04-2024 Miscellaneous Notes* Telephone Encounter - Mag Tsai RN - 08/07/2024 8:30 AM EST Patient/family notified. Mag Tsai RN * Telephone Encounter - Mary Cheung MD - 08/06/2024 5:35 PM EST It's fine to try the newer medication Mary Cheung MD * Telephone Encounter - Mag Tsai RN - 08/06/2024 4:35 PM EST Mother calls stating that patient was seen in urgent care for a yeast infection on 08/03/24 and provided a prescription for Monistat 3 cream. The pharmacy was unable to get this in until today. In the meantime, she went to ER on 08/04/24 and given another type of cream (Miconazole 2% 45 gram) to usewith an applicator daily at bedtime and externally BID prn. Mother reports that the Miconazole has not been helpful and her symptoms seem to be worse. She questions if ok to switch to the Monistat 3 to see if results in any improvement? Mag Tsai RN [facility] Telephone encounter Note * Telephone Encounter - Mary Cheung MD - 08/06/2024 5:35 PM EST It's fine to try the newer medication Mary Cheung MD [facility]12-03-2024 Telephone encounter Note* Telephone Encounter - Mag Tsai RN - 08/06/2024 4:35 PM EST Mother calls stating that patient was seen in urgent care for a yeast infection on 08/03/24 and provided a prescription for Monistat 3 cream. The pharmacy was unable to get this in until today. In the meantime, she went to ER on 08/04/24 and given another type of cream (Miconazole 2% 45 gram) to usewith an applicator daily at bedtime and externally BID prn. Mother reports that the Miconazole has not been helpful and her symptoms seem to be worse. She questions if ok to switch to the Monistat 3 to see if results in any improvement? Mag Tsai RN [facility]12-01-2024 Telephone encounter Note* Telephone Encounter - Kendy Cuba MA - 08/04/2024 8:32 AM EST Pt was notified of the results. Pt verbalized understanding. Kendy Cuba MA [facility]12-01-2024 Miscellaneous Notes* Telephone Encounter - Kendy Cuba MA - 08/04/2024 8:32 AM EST Pt was notified of the results. Pt verbalized understanding. Kendy Cuba MA * Telephone Encounter - Maryann Walden APRN.CNP - 08/04/2024 7:56 AM EST Please advise patient the swab was positive for yeast only. Otherwise negative. Use cream as prescribed yesterday. Maryann Walden APRN.CNP [facility] Telephone encounter Note * Telephone Encounter - Maryann Walden APRN.CNP - 08/04/2024 7:56 AM EST Please advise patient the swab was positive for yeast only. Otherwise negative. Use cream as prescribed yesterday. Maryann Walden APRN.CNP [facility]11-30-2024 Instructions* Patient Instructions* Maryann Walden APRN.CNP - 08/03/2024 10:13 AM EST ASSESSMENT/PLAN: 1. Vaginal discharge - ICD9: 623.5, ICD10: N89.8 - LUZ/TRICHOMONAS NAAT - BACTERIAL VAGINOSIS NAAT - GONORRHEA/CHLAMYDIA NAAT - miconazole cream prescribed for suspected yeast infection. Please treat accordingly if other tests are positive. - Follow-up with your PCP in 3-5 days if symptoms have not improved or sooner if symptoms worsen - Discussed red flags and need for immediate medical evaluation if any occur. - Discussed supportive care treatment with fluids, rest and analgesia. - Discussed expected course of illness Maryann Walden APRN.CNP [facility] PATIENT INFO VAGINAL YEAST INFECTION INTRODUCTION Vaginal yeast infections are a common problem in women. Vaginal yeast infections are also called yeast vaginitis or vaginal candidiasis. The most common symptoms of a yeast infection are itching and irritation of the vulva and around the opening of the vagina. Yeast infections occur mainly in women who are menstruating (having monthly periods). They are lesscommon in postmenopausal women who do not take estrogen and in girls who have not yet started menstruating. VAGINAL YEAST INFECTION SYMPTOMS The most common symptoms of a yeast infection include: Itching or irritation of the vulva and around the vaginal opening. Pain with urination, vulvar soreness or irritation, Pain with intercourse Reddened and swollen vulvar and vaginal tissues. Some women have no abnormal vaginal discharge. Others have white clumpy (curd- like) or watery vaginal discharge. Symptoms of a yeast infection are similar to a number of other conditions, including bacterial vaginosis (a bacterial infection of the vagina), trichomoniasis (a sexually transmitted infection), and dermatitis (irritated skin). It is often not possible to know if itching is caused by yeast or other causes. VAGINAL YEAST INFECTION CAUSE The fungus that causes yeast infections (named Luz) normally lives in the gastrointestinal tract and sometimes the vagina. Normally, Luz causes no symptoms. However, when there are changes inthe normal aixa of the gastrointestinal tract and vagina (caused by medicines, injury, or stress to the immune system), Luz can overgrow and cause the symptoms described above. VAGINAL YEAST INFECTION RISK FACTORS In most women, there is no underlying health problem that leads to a yeast infection. There are several risk factors that may increase the chances of developing an infection, including: Antibiotics -- Most antibiotics kill a wide variety of bacteria, including those that normally livein the vagina. These bacteria protect the vagina from the overgrowth of yeast. Some women are proneto yeast infections while taking antibiotics. Hormonal contraceptives (eg, control pills, patch, and vaginal ring) -- The risk of yeast infections may be higher in women who use control methods containing estrogen. Contraceptive devices -- Vaginal sponges, diaphragms, and intrauterine devices (IUDs) may increase the risk of yeast infections. Spermicides do not usually cause yeast infections, although they can cause you to have vaginal or vulvar irritation. Weakened immune system -- Yeast infections are more common in people who have a weakened immune system due to HIV or use of certain medications (steroids, chemotherapy, post-organ transplant medications). -- Vaginal discharge becomes more noticeable during , although yeast infection is not always the cause. Diabetes -- Women with diabetes are at higher risk for yeast infections, especially if blood sugar levels are often higher than normal. Sexual activity -- Vaginal yeast infections are not a sexually transmitted infection. They can occur in women who have never been sexually active, but are more common in women who are sexually active. VAGINAL YEAST INFECTION DIAGNOSIS Yeast infections can be diagnosed with an exam. During the exam, your doctor or nurse will examine your vulva and vagina and swab the vagina to get a sample of discharge. Do not begin treatment at home before being examined. Self-diagnosis -- Women with vulvar itching or vaginal discharge often assume that their symptoms are caused by a yeast infection and then use a non- prescription treatment. However, in one study, only 11 percent of women accurately diagnosed their infection; women with a previous yeast infection were only slightly more accurate (35 percent correct). Diagnosing and treating yourself: Wastes money (on non-prescription treatment) Wastes time; you will not feel better until you use the right treatment Can make you more itchy and irritated VAGINAL YEAST INFECTION TREATMENT Treatment of a vaginal yeast infection may include a pill that you take by mouth or a vaginal treatment. Vaginal treatment -- Treatment for a vaginal yeast infection often includes a vaginal cream or tablet. You apply the cream or tablet inside the vagina at bedtime with an applicator. There are prescription and non-prescription treatments, so ask your doctor or nurse which to use. One, three, and seven-day treatments are equally effective. Oral treatment -- A prescription pill called fluconazole (Diflucan ) is another option for treatingyeast infections. Most women only need one dose, although women with more complicated infections (such as those with underlying medical problems, recurrent yeast infections, or severe signs and symptoms) may require a second dose 72 hours (3 days) after the first dose. Side effects of fluconazole are mild and infrequent, but may include stomach upset, headache, and rash. Fluconazole interacts with a number of medications; ask your doctor, nurse, or pharmacist if you have concerns. Fluconazole is not usually recommended during the first trimester of due to the potential risk of harm to the fetus. When will I feel better? -- Most yeast infections go away within a few days after starting treatment. However, you may continue to feel itchy and irritated, even after the infection is gone. If you do not get better within a few days after finishing treatment, call your doctor or nurse for advice. RECURRENT VAGINAL YEAST INFECTIONS Between 5 and 8 percent of women have recurrent yeast infections, defined as more than four infections per year. There is no evidence that eating yogurt or other products containing live Lactobacillus acidophilus, or applying these products to the vagina is of any benefit in women with recurrent vaginal yeast infections. Diagnosis -- As with initial yeast infections, it is important to correctly diagnose recurrent yeast infections. A woman who has frequent signs and symptoms of vulvar or vaginal irritation or itchingshould be seen by a healthcare provider to ensure that her symptoms are caused by yeast rather thanother common problems (eg, other vaginal infections, allergic reaction or sensitivity, eczema). As with initial infections, self-diagnosis is not accurate enough to recommend treatment. Treatment -- Women with recurrent infections are usually given a longer course of treatment for infections, between 7 and 14 days for a topical (cream or suppository) medication or fluconazole 150 mgby mouth with a second and third dose 3 and 6 days later. Preventive treatment may be recommended after the infection has resolved; this may include fluconazole (150 mg orally once per week) or clotrimazole (500 mg vaginal suppositories administered once per week). Treatment of a sexual partner -- Vaginal yeast infections are not a sexually transmitted infection,although the infection may rarely be passed from one partner to another. Most experts do not recommend treatment of a sexual partner. SUMMARY Vaginal yeast infections are a common problem in women. Itching is the most common symptom of a vaginal yeast infection. Women may also note pain with urination, soreness or irritation, pain with intercourse, or reddened and swollen vulvar and vaginal tissues. There is often little or no vaginal discharge; if present, discharge is typically white and clumpy (curd- like) or thin and watery. Symptoms of a yeast infection are similar to a number of other conditions. A physical examination is needed to determine the cause of symptoms. There are several risk factors that may increase the chances of developing a yeast infection, including use of antibiotics, control, diabetes, , and a weakened immune system (due to chemotherapy, HIV, or certain medications). To diagnose a vaginal yeast infection, a healthcare provider will do an examination. It is important to be seen when symptoms are bothersome and before any treatment is used. Do not begin treatment for a yeast infection before being examined. Treatment of vaginal yeast infection may include a vaginal cream or tablet or a pill taken by mouth. [facility] NoteHNO ID: [id number] Author: MARYANN WALDEN APRN.CLOTH INSPECTOR Service: ? Author Type: Nurse Practitioner Type: Progress Notes Filed: 08/03/2024 10:13 Note Text: Subjective Vaginal Problem Pertinent negatives include no chills or fever. Nancy Daley is a 18 year old female who presents with vaginal burning and discharge since yesterday. She states the area inside vagina ying all the time. She is not currently sexually active but has been in the past. LMP 07/07/2024 Denies vaginal bleeding, sores, dysuria or frequency. No fever. Review of Systems Constitutional: Negative for chills and fever. Respiratory: Negative. Cardiovascular: Negative. Genitourinary: Positive for vaginal discharge. Negative for dysuria and frequency. See HPI BP 100/78 Pulse 119 Temp 37.3 ?C (99.1 ?F) Resp 18 Wt 39.8 kg (87 lb 11.9 oz) SpO2 98% PAST MEDICAL HISTORY Diagnosis Date NEGATIVE MEDICAL HISTORY PMH - PAST MEDICAL HISTORY OF 05/24/10 normal color vision PAST SURGICAL HISTORY Procedure Laterality Date NONE ALLERGIES Patient has no known allergies. MEDICATIONS Benzoyl Peroxide 5 % external wash Apply 1 application to affected area every morning. tretinoin (RETIN-A) 0.1 % cream Apply 1 application to affected area daily at bedtime. FAMILY HISTORY Problem Relation Age of Onset Hypertension Maternal Grandmother Social History Tobacco Use Smoking status: Never Passive exposure: Never Smokeless tobacco: Never Objective Physical Exam Vitals and nursing note reviewed. Exam conducted with a animal shelter manager present. Constitutional: Appearance: Normal appearance. Cardiovascular: Rate and Rhythm: Normal rate. Pulmonary: Effort: Pulmonary effort is normal. Genitourinary: Exam position: Lithotomy position. Pubic Area: No rash. Labia: Right: Tenderness present. No rash, lesion or injury. Left: Tenderness present. No rash, lesion or injury. Vagina: Vaginal discharge, erythema and tenderness present. Comments: Vulvar tissue is erythematous and slightly swollen. Skin: General: Skin is warm and dry. Findings: Erythema present. No rash. Neurological: Mental Status: She is alert. The sensitive examination was discussed with the Patient or Patient's Authorized Software Design Engineer. As applicable, any other physician, advance practice provider, medical student, or other health professional student that will be observing or involved in the sensitive examination for educational or training purposes was discussed with the Patient or Authorized Software Design Engineer. The Patient or Authorized Software Design Engineer has agreed to proceed with the sensitive examination. (Sensitive examination includes inspection and/or palpation of the breasts, pelvis, prostate and anorectal regions) ASSESSMENT/PLAN: 1. Vaginal discharge - ICD9: 623.5, ICD10: N89.8 - LUZ/TRICHOMONAS NAAT - BACTERIAL VAGINOSIS NAAT - GONORRHEA/CHLAMYDIA NAAT - miconazole cream prescribed for suspected yeast infection. Please treat accordingly if other tests are positive. - Follow-up with your PCP in 3-5 days if symptoms have not improved or sooner if symptoms worsen - Discussed red flags and need for immediate medical evaluation if any occur. - Discussed supportive care treatment with fluids, rest and analgesia. - Discussed expected course of illness Maryann Walden APRN.[facility]11-30-2024 History of Present illness Narrative* Maryann Walden APRN.CLOTH INSPECTOR - 08/03/2024 10:08 AM EST Subjective Vaginal Problem Pertinent negatives include no chills or fever. Nancy Daley is a 18 year old female who presents with vaginal burning and discharge since yesterday. She states the area inside vagina ying all the time. She is not currently sexually active but has been in the past. LMP 07/07/2024 Denies vaginal bleeding, sores, dysuria or frequency. No fever. Review of Systems Constitutional: Negative for chills and fever. Respiratory: Negative. Cardiovascular: Negative. Genitourinary: Positive for vaginal discharge. Negative for dysuria and frequency. See HPI BP 100/78 Pulse 119 Temp 37.3 C (99.1 F) Resp 18 Wt 39.8 kg (87 lb 11.9 oz) SpO2 98% PAST MEDICAL HISTORY Diagnosis Date NEGATIVE MEDICAL HISTORY PMH - PAST MEDICAL HISTORY OF 05/24/10 normal color vision PAST SURGICAL HISTORY Procedure Laterality Date NONE ALLERGIES Patient has no known allergies. MEDICATIONS Benzoyl Peroxide 5 % external wash Apply 1 application to affected area every morning. tretinoin (RETIN-A) 0.1 % cream Apply 1 application to affected area daily at bedtime. FAMILY HISTORY Problem Relation Age of Onset Hypertension Maternal Grandmother Social History Tobacco Use Smoking status: Never Passive exposure: Never Smokeless tobacco: Never Objective Physical Exam Vitals and nursing note reviewed. Exam conducted with a animal shelter manager present. Constitutional: Appearance: Normal appearance. Cardiovascular: Rate and Rhythm: Normal rate. Pulmonary: Effort: Pulmonary effort is normal. Genitourinary: Exam position: Lithotomy position. Pubic Area: No rash. Labia: Right: Tenderness present. No rash, lesion or injury. Left: Tenderness present. No rash, lesion or injury. Vagina: Vaginal discharge, erythema and tenderness present. Comments: Vulvar tissue is erythematous and slightly swollen. Skin: General: Skin is warm and dry. Findings: Erythema present. No rash. Neurological: Mental Status: She is alert. The sensitive examination was discussed with the Patient or Patient's Authorized Software Design Engineer. Asapplicable, any other physician, advance practice provider, medical student, or other health professional student that will be observing or involved in the sensitive examination for educational or training purposes was discussed with the Patient or Authorized Software Design Engineer. The Patient or Authorized Software Design Engineer has agreed to proceed with the sensitive examination. (Sensitive examination includes inspection and/or palpation of the breasts, pelvis, prostate and anorectal regions) ASSESSMENT/PLAN: 1. Vaginal discharge - ICD9: 623.5, ICD10: N89.8 - LUZ/TRICHOMONAS NAAT - BACTERIAL VAGINOSIS NAAT - GONORRHEA/CHLAMYDIA NAAT - miconazole cream prescribed for suspected yeast infection. Please treat accordingly if other tests are positive. - Follow-up with your PCP in 3-5 days if symptoms have not improved or sooner if symptoms worsen - Discussed red flags and need for immediate medical evaluation if any occur. - Discussed supportive care treatment with fluids, rest and analgesia. - Discussed expected course of illness Maryann Walden APRN.MILENA [facility] History of Present illness Narrative* Sakina Walton APRN.CNP - 04/20/2023 11:45 AM EDT 17 year old female with no significant PMH presents for complaints of chest pain. Mom accompanies patient who endorses child started with chest pain last Monday. Discussed limitations of express care. Reached out to Dr. Farfan nursing team They spoke with Dr. Cheung who recommends ED. Patient and family decline EMS documented in this encounterG[facility]08-14-[facility]23 Miscellaneous Notes* Telephone Encounter - Paulo Blount RN - 04/17/2023 7:01 PM EDT Mother aware and scheduled for next week to discuss anxiety. Paulo Blount RN * Telephone Encounter - Mary Cheung MD - 04/17/2023 6:28 PM EDT If Nancy is feeling better, it should be ok to stop the bactrim and f/u if Sx return. Her 04/14 urine culture is reassuring and not c/w a UTI (1-10k cfu mixed organisms) Mary Cheung MD * Telephone Encounter - Paulo Blount RN - 04/17/2023 6:17 PM EDT Mother thinks that was the other script was to be filled if she needed maybe. She only took the Bactrim and the Pyridium. Should she follow up tomorrow? Paulo Blount RN * Telephone Encounter - Mary Cheung MD - 04/17/2023 5:31 PM EDT Three days is often adequate treatment of UTI with bactrim. I think it's ok to stay off the medication if she took it for three days. It would be helpful to know the lab results to make further decisions. By any chance was she also prescribed macrobid? Her chart says that she was recently on macrobid aswell. Mary Cheung MD * Telephone Encounter - Mag Tsai RN - 04/17/2023 4:04 PM EDT Mother calls stating that patient was seen on 04/14/23 for UTI at [facility]. She was placed on Bactrim. Mother states that patient took her first dose on Monday evening. Monday morning she started with intermittent c/o chest pain, heart racing, and difficulty breathing. These episodes last about 2 minutes at a time. On Monday, there were 3 different instances of symptoms. Mother decided to have patient stop the Bactrim as he she felt it may be medication related. Yesterday had 1-2 episodes. Today she has had 1 episode. Denies any fevers or urinary symptoms. She questions if should trysomething different? Next available appt within pediatric dept would not be until 04/19. Please advise. Mag Tsai RN documented in this encounterG[facility]10-07-2022 Instructions* Patient Instructions* Karey Felix APRN.CLOTH INSPECTOR - 06/10/2022 1:37 PM EDT Images from the original note were not included. 5 to Go!TM Healthy Kids Inside & Out 5 Eat FIVE fruits and veggies a day 4 Give and get FOUR compliments a day 3 Consume THREE calcium products a day 2 Limit media time to TWO hours a day 1 Get at least ONE hour of exercise a day 0 Consume ZERO sugar-sweetened drinks Go! Be healthy, inside and out! www.[facility].org/5toGo Adolescent to Adult Transition Program [facility] cares about helping you and each of our adolescents and young adults make a smoothtransition to adult care. If your current doctor is a integrated marketing manager, we will work with you to decide the correct age for moving your care to a doctor or other provider who takes care of adults. We suggest that this move take place before age 22. Our office policy is to prepare you to move to a doctor or other provider who takes care of adults. This includes helping you find a doctor or other provider, sending medical records, and talking about any special needs with the new doctor or other provider. If your current doctor is in family medicine, [facility] will prepare you and your family forthe transition to being an adult patient. You will be able to make your own healthcare decisions and will have an adult care team that meets your personal healthcare needs. At age 18, by law, we need your agreement to discuss personal health information with your family. We understand and respect that you may want to include your family in healthcare choices and will partner with you on how and when to include your family in decisions. We will make sure you know what changes to expect. We will also strive to make sure that all care team providers know your needs. We will help you find community resources and specialty care, if needed. Having your information before you come for the first time helps us be sure we do not miss any details. If joining our practice from outside [facility], we will help you request your medical record from past doctor(s) before your first visit. We will make every effort to work with your past providers to ensure a smooth transition and experience. We are always here for you. If you have any questions or concerns, please contact your primary careteam or e-mail [email or web address] Got AquaBlok is the federally funded national resource center on health care transition (HCT). Its aim is to improve transition from pediatric to adult health care through the use of evidence-driven strategies for health healthcare manager, youth, young adults, and their families. www.gottransition.org https://DaggerF[employer] Groupition.org/resource/?thf-mldwzs-abasvqm Healthy Children Ages & Stages Texting Program HealthyBusiness Exchange.org is an AAP ([place] Academy of [employer]s) parenting website. It is a great resource for information. They have a new Ages & Stages texting program available to parents. Fill out the information in the link below to start getting helpful tips and resources from AAP experts right to your phone. Be sure to include your child's age so they can send you age appropriate information. https://www.[employer].org/French/tips-tools/IxwduvgUgjqziyp-Noiitnk-Rhibt am/Pages/default.aspx documented in this encounterGlen[facility] Hospital10-07-2022 History of Present illness Narrative* Karey Felix APRN.MILENA - 06/10/2022 12:50 PM EDT WELL VISIT PEDIATRIC FEMALE 14-17 YRS OLD SERVICE DATE: 06/10/2022 Nancy is a 16 year old female who presents today for well exam accompanied by her mother and sibling(s). SUBJECTIVE CONCERNS: no concerns HISTORY There is no problem list on file for this patient. PAST MEDICAL HISTORY Diagnosis Date NEGATIVE MEDICAL HISTORY PMH - PAST MEDICAL HISTORY OF 05/24/10 normal color vision PAST SURGICAL HISTORY Procedure Laterality Date NONE ALLERGIES No Known Allergies Medications: Benzoyl Peroxide 5 % external wash Apply 1 application to affected area every morning. tretinoin (RETIN-A) 0.1 % cream Apply 1 application to affected area daily at bedtime. FAMILY HISTORY Problem Relation Age of Onset Hypertension Maternal Grandmother Social History Social History Narrative Not on file Smoking Exposure: Does your child spend a significant amount of time in the care of anyone who smokes? No School: Grade: 12th; grades A, B, C, D, and F. Physical Activity: less than 1 hour of physical activity per day Screen Time totaling more than 2 hours of screen time per day. Safety: Pediatric SDOH - Response to gun questions 06/10/2022 Are there any guns kept in or around your home or where your child spends time? No Reviewed seat belts, bike helmets, and smoke detectors Diet: -Eats 3 meals per day and varies snacks per day -Typical beverages include sugar containing beverages -Fruits and vegetables are not eaten routinely -# of fast food meals/week: 1-2 -# of days/week that family has dinner together: 7 Elimination: no concerns, normal size and consistency Dental: dental care current Sleep: -no sleep concerns Vision:Will be seeing eye doctor soon, has had glasses in the past Hearing: No hearing concerns Growth: No growth concerns Gynecological history: LMP: 05/14/2022 Cycles are regular and last 7 days. Dysmenorrhea: moderate Heavy periods: no Substance use: none High risk behaviors: none Sexual History: Attraction: male Sexually Active: No Body image: satisfactory Screening tools reviewed and discussed with patient/bsqzok-DFG-C and Social Determinants of Health.Please see Patient Entered Data. OBJECTIVE Physical Exam: BP 102/50 Pulse 76 Temp 37.1 C (98.7 F) (Temporal Artery) Resp 12 Ht 152 cm (4' 11.84) Wt 38.1 kg (84 lb) BMI 16.49 kg/m Blood pressure percentiles are 29 % systolic and 9 % diastolic based on the 2017 AAP Clinical Practice Guideline. This reading is in the normal blood pressure range. 1 %ile (Z= -2.30) based on CDC (Girls, 2-20 Years) BMI-for-age based on BMI available as of 06/10/2022. Last BMI: Wt: 31.8 kg (70 lb) (11 %, Z= -1.21)* BMI: 16.27 kg/(m^2) Last 4 Encounter Wt Readings: Date: Wt: 03/14/2016 31.8 kg (70 lb) (11 %, Z= -1.21)* 01/11/2016 30.3 kg (66 lb 12.8 oz) (8 %, Z= -1.38)* 12/03/2015 29.5 kg (65 lb) (7 %, Z= -1.47)* 09/10/2015 30 kg (66 lb 3.2 oz) (12 %, Z= -1.20)* Last 4 Encounter Ht Readings: Date: Ht: 12/03/2015 139.7 cm (4' 7) (19 %, Z= -0.86)* 05/15/2013 121.9 cm (4') (5 %, Z= -1.64)* 12/20/2012 119.4 cm (3' 11) (4 %, Z= -1.76)* 06/04/2012 117.5 cm (3' 10.25) (5 %, Z= -1.61)* General: Well developed, No acute distress Head: normocephalic Eyes: conjunctivae/corneas clear, PERRL, EOMI Ears: normal external ear and canal, tympanic membranes with normal landmarks Nose: no erythema or rhinorrhea Oropharynx: moist mucous membranes, no erythema or exudate Neck: Supple, no adenopathy Spine: Back symmetric, no curvature Resp: lungs clear to auscultation Heart: RRR, normal S1 and S2. , No murmurs Breast: Wm Stage V Abdomen: Soft, nontender, nondistended, no palpable organomegaly or masses, normal bowel sounds Genitalia: not examined Extremities: Full ROM and no swelling, erythema or tenderness Neuro: No focal deficits or abnormal findings present Skin: no rashes, lesions or jaundice ASSESSMENT & PLAN Encounter Diagnosis ICD-10-CM 1. Well adolescent visit without abnormal findings Z00.129 2. Encounter for immunization Z23 MENINGOCOCCAL VACCINE, QUADRIVALENT (MENQUADFI) 1 %ile (Z= -2.30) based on CDC (Girls, 2-20 Years) BMI-for-age based on BMI available as of 06/10/2022. Nancy is underweight (BMI less than 5th%): -Recommend nutrition supplement such as Pediasure, Boost for Kids or Dane Instant Breakfast -Discussed 3 meals per day and at least 2 snacks -Discussed nutritious high calorie/fat foods such as peanut butter, dairy, avocados, nuts -Drizzle plate with olive oil -Add oil or butter to vegetables Based on PHQ-A Score: 3 (recommended cut off score is 11) and interview, presentation is not consistent with depression - Adolescent anticipatory guidance discussed. - Discussed diet and safety. - Dental care discussed. - Bright Futures handout given (See Patient Instructions). - Parent/guardian was counseled [id number] by myself (the billing provider) for the following immunizations and vaccine components, including side effects: MenQuadFi. Parent/guardian consents for immunization and understands risks and benefits. A VIS sheet on each immunization was given to the parent/guardian. Parent/guardian declined immunization for COVID-19, HPV, and Influenza and was counseled regarding risk. - Strongly encouraged to return to clinic for HPV vaccine. - Follow up in one year for routine physical. SIGNATURE: Karey Felix APRN.CNP PATIENT NAME: Nancy Daley DATE: June 10, 2022 TIME: 12:50 PM documented in this encounterGlen[facility]09-[facility] History of Past illness Narrative* Problem Noted Date Resolved Date ADHD (attention deficit hyperactivity disorder) 05/15/2013 12/03/2015 documented as of this encounter (statuses as of 06/15/2022) [facility] of Past illness Narrative* Problem Noted Date Diagnosed Date Resolved Date ADHD (attention deficit hype ractivity disorder) 05/15/2013 12/03/2015 documented as of this encounter (statuses as of 04/18/2023) [place] [id number] History of Past illness Narrative* Problem Noted Date Diagnosed Date Resolved Date ADHD (attention deficit hype ractivity disorder) 05/15/2013 12/03/2015 documented as of this encounter (statuses as of 04/20/2023) [facility] Diagnosis Onset Date Resolution Status Acute pharyngitis, unspecified acute Acute sinusitis, unspecified acute URI (upper respiratory infection) acute [facility] Work Phone: Evaluation note* Diagnosis Well adolescent visit without abnormal findings- Primary Encounter for immunization Need for other specified prophylactic vaccination against single bacterial disease documented in this encounter [facility] note* Diagnosis Onset Date Resolution Status Dysuria acute Dysuria acute [facility] Work Phone: Evaluation note* Diagnosis Chest pain, unspecified type- Primary documented in this encounter [facility] note* Diagnosis Vaginal discharge- Primary Leukorrhea, not specified as infective documented in this encounter [facility] note* Diagnosis Acute vaginitis- Primary Vaginitis and vulvovaginitis, unspecified documented in this encounter [facility] note* Diagnosis Viral illness- Primary Unspecified viral infection, in conditions classified elsewhere and of unspecified site documented in this encounter [facility] note* Diagnosis Functional constipation Other constipation documented in this encounter [facility] note* Diagnosis Burning with urination- Primary Dysuria Vaginal itching Pruritus of genital organs [facility])No reason for referral information availableWAdena [facility] Work Phone: Reason for visit Narrative* Diagnostic Procedure Only (Routine) - Closed Specialty Diagnoses / Procedures Referred By Contcherelle t Referred To Contact XR IMAGING Diagnoses Functional constipation Procedures XR ABDOMEN 1V SUPINE RADIOLOGIC EXAM ABDOMEN 1 VIEW Mary Lemus MD [address] [place] [address] Phone: tel: fax: [place] [id number] Referral ID Status Reason Start Date Expiration Date V isits Requested Visits Authorized [id number] Closed Auto-Generate d Referral OON/Self Pay Override 05/01/2025 05/31/2026 1 1 [facility] History of Past Illness Problem Noted Date Resolved Date ADHD (attention deficit hyperactivity disorder) 05/15/2013 12/03/2015 Chief Complaint and Reason for Visit Chief Complaint SORE THROAT/PND/MEDEL Reason for Visit Acute pharyngitis, u nspecified Acute sinusitis, unspecified URI (upper respiratory infection) Chief Complaint POSSIBLE UTI POSSIBLE UTI LABSPEC Reason for Visit Dysuria Dysuria Chief Complaint POSSIBLE UTI POSSIBLE UTI LABSPEC CP Reason for Visit Dysuria Dysuria Chief Complaint Admit Date ABD PAIN, LOW BACK PAIN October 16 12:56pm INFECTED EXTRACTION SITE February 04, 2025 2:59pm Reason for Visit Admit Date Abdominal pain October 16, 2024 12:56pm Acute pharyngitis, unspecified October 16, 2024 12:56pm Contact with or exposure to other viral diseases October 16, 2024 12:56pm Low back pain October 16, 2024 12:56pm Advance Directives No Advanced Directives Records Found Advance Directive Response Recorded Date/ Time Living Will No April 20 12:03pm Power of Business Transformation Consultant No April 20, 023 12:03pm Summary Purpose Family History No Family History Records FoundNo Family History Records Found Additional Source Comments Source Comments (unrecognize d section and content) In the event this informatio n is protected by the Federal Confidentiality of Alcohol and Drug Abuse Patient Records regulations: The Federal rules restrict any use of the information to criminally investigate or prosecute any alcohol or drug abuse patient.[facility] the event this information is protected by the Federal Confidentiality of Alcohol and Drug Abuse Patient Records regulations: The Federal rules restrict any use of the information to criminally investigate or prosecute any alcohol or drug abuse patient.[facility] HospitalIn the event this information is protected by the Federal Confidentiality of Alcohol and Drug Abuse Patient Records regulations: The Federal rules restrict any use of the information to criminally investigate or prosecute any alcohol or drug abuse patient.[facility] Hospital[facility] the event this information is protected by the Federal Confidentiality of Alcohol and Drug Abuse Patient Records regulations: The Federal rules restrict any use of the information to criminally investigate or prosecute any alcohol or drug abuse patient.[facility] HospitalIn the event this information is protected by the Federal Confidentiality of Alcohol and Drug Abuse Patient Records regulations: The Federal rules restrict any use of the information to criminally investigate or prosecute any alcohol or drug abuse patient.[facility] HospitalIn the event this information is protected by the Federal Confidentiality of Alcohol and Drug Abuse Patient Records regulations: The Federal rules restrict any use of the information to criminally investigate or prosecute any alcohol or drug abuse patient.[facility] HospitalIn the event this information is protected by the Federal Confidentiality of Alcohol and Drug Abuse Patient Records regulations: The Federal rules restrict any use of the information to criminally investigate or prosecute any alcohol or drug abuse patient.[facility] Hospital[facility] the event this information is protected by the Federal Confidentiality of Alcohol and Drug Abuse Patient Records regulations: The Federal rules restrict any use of the information to criminally investigate or prosecute any alcohol or drug abuse patient.[facility] HospitalIn the event this information is protected by the Federal Confidentiality of Alcohol and Drug Abuse Patient Records regulations: The Federal rules restrict any use of the information to criminally investigate or prosecute any alcohol or drug abuse patient.[facility] HospitalIn the event this information is protected by the Federal Confidentiality of Alcohol and Drug Abuse Patient Records regulations: The Federal rules restrict any use of the information to criminally investigate or prosecute any alcohol or drug abuse patient.[facility] HospitalIn the event this information is protected by the Federal Confidentiality of Alcohol and Drug Abuse Patient Records regulations: The Federal rules restrict any use of the information to criminally investigate or prosecute any alcohol or drug abuse patient.[facility] HospitalIn the event this information is protected by the Federal Confidentiality of Alcohol and Drug Abuse Patient Records regulations: The Federal rules restrict any use of the information to criminally investigate or prosecute any alcohol or drug abuse patient.[facility] HospitalIn the event this information is protected by the Federal Confidentiality of Alcohol and Drug Abuse Patient Records regulations: The Federal rules restrict any use of the information to criminally investigate or prosecute any alcohol or drug abuse patient.[facility] HospitalIn the event this information is protected by the Federal Confidentiality of Alcohol and Drug Abuse Patient Records regulations: The Federal rules restrict any use of the information to criminally investigate or prosecute any alcohol or drug abuse patient.[facility] Reason for Visit (unrecogniz ed section and content) Reason Onset Date Comments UTI 04/14/2020 Reason Comments Well Child Reason Comments Question Reason Comments Vaginal Problem Discharge, burning, itching, cramping x 1 day Reason Comments Results Reason Comments Vaginal Problem Reason Comments Vaginal Problem Possible yeast infec tion x 2 days Reason Comments Fever Cough, SOB, ears jassi gged, bodyaches, headache, sore throat x 2 days Reason Onset Date Comments Results, Lab 10/18/2024 Reason Comments Urinary Problem burning with urinati on x this am, has had diarrhea, ? yeast also Reason Onset Date Comments Results 05/07/2025 Telephone Encounter - Paulo Blount RN - 04/14/2020 9:06 AM EDT Miscellaneous Notes (unrecog nized section and content) Reason for Disposition Painful urination of unknown cause (Exception: probable soap urethritis or vulvitis) Answer Assessment - Initial Assessment Questions 1. SEVERITY: How bad is the pain? * MILD: complains slightly about urination hurting * MODERATE: complains greatly or cries during urination * SEVERE: excruciating pain, interferes with most normal activities, child unable or unwilling to urinate because of pain Mild 2. FREQUENCY: How many times has she had painful urination today? slight but unable to go 3. PATTERN: Does it come and go, or is it constant? If constant: Is it getting better, staying the same, or worsening? If intermittent: How long does it last? Does your child have the pain now? constant 4. ONSET: When did the painful urination start? Monday night 5. FEVER: Is there a fever? If so, ask: What is it, how was it measured, and when did it start? 99.5 6. RECURRENT PROBLEM: Has your child had painful urination before? If so, ask: When was the last time? and What happened that time? Ever have a urine infection in the past? No 7. CAUSE: What do you think is causing the painful urination? Unsure Protocols used: URINATION PAIN - [id number] documented in this encounter Goals (unrecognized section and content) Goals may be documented in a n alternate sectionGoals may be documented in an alternate sectionGoals may be documented in an alternate sectionGoals may be documented in an alternate section Care Teams (unrecognized sec tion and content) Chief Revenue Officer Relationship Specialty Start Date End Date Mary Cheung MD [address] [place] [address] PCP - General Pediatrics 12/09/14 Chief Revenue Officer Relationship Specialty Start Date End Date Mary Cheung MD [address] [place] [address] PCP - General Pediatrics 12/09/14 Team Status: Active Member Role Status Dates Breonna Casas Family Provider Active No Primary Care Physician Primary Care Provider Active Team Status: Inactive Member Role Status Dates Dustin HARRIS PA Attending Provider Active Team Status: Inactive Member Role Status Dates Erik Esteves DIE SET UP WORKER, DIE SET UP WORKER-C Attending Provider Active Team Status: Inactive Member Role Status Dates Erik Esteves DIE SET UP WORKER, DIE SET UP WORKER-C Attending Provider, Referring Pro vider Active No Primary Care Physician Primary Care Provider Active Team Status: Inactive Member Role Status Dates Dustin HARRIS PA Attending Provider, Referring Provi valentín Active Team Status: Active Member Role Status Dates Breonna Casas Family Provider Active Dr. Mary Cheung MD Primary Care Provider Active Team Status: Inactive Member Role Status Dates Dr. Irvin Barragan DO Emergency Provider Active Dr. Mary Cheung MD Primary Care Provider Active Chief Revenue Officer Relationship Specialty Start Date End Date Mary Cheung MD [address] [place] [address] PCP - General Pediatrics 12/09/14 Chief Revenue Officer Relationship Specialty Start Date End Date Mary Cheung MD [address] [place] [address] PCP - General Pediatrics 12/09/14 Chief Revenue Officer Relationship Specialty Start Date End Date Mary Cheung MD [address] [place], [place] [id number] PCP - General Pediatrics 12/09/14 Chief Revenue Officer Relationship Specialty Start Date End Date Mary Cheung MD [address] [place], [place] [address] PCP - General Pediatrics 12/09/14 Team Status: Inactive Member Role Status Dates Dr. Mary Cheung MD Primary Care Provider Active Start: October 16, 2024 End: October 16, 2024 Dr. Mary Cheung MD Referring Provider Active Start: October 16, 2024 End: October 16, 2024 John Posey PA, PA Attending Provider Active Start: October 16, 2024 End: October 16, 2024 Team Status: Inactive Member Role Status Dates Dr. Mary Cheung MD Primary Care Provider Active Start: February 04, 2025 End: February 04, 2025 STEVO BOND MD Attending Provider Active Start: February 04, 2025 End: February 04, 2025 STEVO BOND MD Referring Provider Active Start: February 04, 2025 End: February 04, 2025 Chief Revenue Officer Relationship Specialty Start Date End Date Mary Cheung MD [address] [place] [address] PCP - General Pediatrics 12/09/14 INFORMATION SOURCE (unrecogn ized section and content) DATE CREATED AUTHOR 05/24/2025 [facility] DATE CREATED AUTHOR AUTHOR'S ORGANIZ ATION 07/16/2025 [facility] FOR RECORDS PERTAINING TO PATIENTS WHO ARE OR HAVE BEEN ENROLLED IN A CHEMICAL DEPENDENCY/SUBSTANCEABUSE PROGRAM, SOME INFORMATION MAY BE OMITTED. This clinical summary was aggregated from multiple sources. Caution should be exercised in using it in the provision of clinical care. This summary normalizes information from multiple sources, and as a consequence, information in this document may materially change the coding, format and clinical context of patient data. In addition, data may be omitted in some cases. CLINICAL DECISIONS SHOULD BE BASED ON THE PRIMARY CLINICAL RECORDS. [employer] provides no warranty or guarantee of the accuracy or completeness of information in this document.
[2025-08-12 22:58] LABS: Hematocrit 40.9 % (37-47); Hemoglobin 13.4 g/dL (12.0-15.0); Immature Granulocytes Count 0.010 X10^3/uL (0.0-0.0); Mean Corp Hgb Conc 32.8 g/dL (32-36); Mean Corpuscular Volume 94.7 fL (81-99); Mean Platelet Vol. 9.3 fl (6.2-12.0); NRBC Flagged by Analyzer 0 % (0-5); Platelet Count 300 K/mm3 (150-450); RBC Distribution Width CV 12.5 % (11.6-14.6); RBC Distribution Width SD 43.0 fl (35.1-43.9); Red Blood Count 4.32 M/mm3 (4.2-5.4); White Blood Count 6.5 K/mm3 (4.4-11.0)
--- NOTE | 2025-08-12 23:00 | EX.ED.DYSGE1 ---
HPI History of Present Illness Chief Complaint: Abd Pain Informant: patient and parent Narrative Narrative: Patient is a 19-year-old female with past medical history of slow transit constipation. Otherwise she is overall healthy. She states that over the last 2 days she has had generalized abdominal discomfort with bouts of nausea vomiting and diarrhea. She states that there has been no blood or discoloration to either the emesis or stool. She denies any recent antibiotic use travel outside the country or livestock exposure to suggest infectious diarrhea. She reports her younger brother was recently sick with similar symptoms. However she states that his symptoms only lasted a day and improved and hers are now going on 2 days. Secondary to the persistent nature of symptoms and developing/increasing abdominal pain she presents for evaluation [facility] Medical History Contact with or exposure to other viral diseases Low back pain Abdominal pain Acute sinusitis, unspecified URI (upper respiratory infection) Acute pharyngitis, unspecified Acute sinusitis, unspecified URI (upper respiratory infection) Home Medications ?Medication ?Instructions ?Recorded ?Last Taken ?Type miconazole nitrate 2 % vaginal 1 appful vaginal QHS 7 days #45 08/04/24 Unknown Rx cream (Miconazole-7) grams norgestimate 0.25 mg-ethinyl 1 tab PO DAILY 08/04/24 Unknown History estradiol 0.035 mg tablet ([place]) fluconazole 150 mg tablet 150 mg PO DAILY 1 dose #1 TAB 07/04/25 Unknown Rx dicyclomine 20 mg tablet 20 mg PO TID PRN abdominal 08/12/25 Unknown Rx pain/spasm #21 tabs ondansetron 4 mg disintegrating 4 mg PO TID PRN nausea and 08/12/25 Unknown Rx tablet vomiting #21 tabs Allergy/AdvReac Type Severity Reaction Status Date / Time No Known Allergies Allergy Verified 08/12/25 22:29 Social History (Updated 08/12/25 @ 22:42 by Akila Rae) housing: house Smoking Status: Never smoker substance use type: does not use ROS ROS ED Constitutional Constitutional ED: Denies chills or fever(s) Eyes Eyes: Denies change in vision ENT ENT ED: Denies sore throat Cardiovascular Cardiovascular: Denies chest pain Respiratory/Chest Respiratory/Chest: Denies cough or dyspnea Gastrointestinal Gastrointestinal: Reports abdominal pain, diarrhea, nausea and vomiting Genitourinary Genitourinary ED: Denies dysuria or hematuria Musculoskeletal Musculoskeletal: Denies back pain or myalgias Integumentary Denies rash Neurologic Neurologic: Denies headache(s) Hematologic/Lymphatic Hematologic/Lymphatic: Denies easy bleeding or easy bruising EXAM Physical Exam Const Vital Signs: 08/12/25 22:28 08/12/25 23:35 Temperature 97.6 F L 97.6 F L Temperature Source Temporal Pulse Rate 77 77 Respiratory Rate 13 16 Blood Pressure 111/77 104/69 Blood Pressure Mean 88 80 Pulse Ox 100 99 Oxygen Delivery Method Room Air Positive well nourished and well developed General Appearance ED: well developed; Negative for pallor HEENT Reports moist mucous membranes HEENT Narrative: Normocephalic atraumatic No tongue or lip swelling no oral lesions no airway edema or compromise No secondary findings in the posterior pharynx to suggest infection Eyes PERRL and EOMs intact bilaterally General Eye ED: Negative for scleral icterus Neck supple Resp normal respiratory effort and clear to auscultation bilaterally Cardio regular rate and regular rhythm Rate: other Other Details: Heart is regular rate and rhythm without murmurs rubs or gallop Radial and carotid pulses are equal and symmetric GI non-distended and no masses GI Narrative: Abdomen is soft and nondistended with normal active bowel sounds There is pain with palpation in the midepigastric and right upper quadrant region. No voluntary guarding or rigidity. Negative Mcleod sign No peritoneal signs Auscultation: normoactive bowel sounds Palpation: soft Back/Spine no CVA tenderness Extremity normal to inspection Neuro oriented x3, CN's II-XII intact bilaterally and no sensory deficits noted Sensorium / Orientation: alert Motor Exam: strength 5/5 throughout Psych mental status grossly normal Skin no rashes or lesions noted, no wounds and skin turgor normal General Skin Exam: Negative for jaundice or pallor MDM MDM MDM Narrative Medical decision making narrative: Patient arrived to ER with stable vitals. She reported 1 to 2 days of generalized abdominal discomfort with nausea vomiting diarrhea. She also has known sick contacts at home with similar symptoms. History and exam would suggest this is a viral stomach infection such as norovirus or rotavirus. She does not have any risk factors for infectious diarrhea such as Salmonella E. coli or Shigella so I feel no need for stool sample. In order to assess for acute kidney injury potential systemic infection or biliary colic or pancreatitis basic labs were ordered. Patient does not have a white count or leukocytosis there is no signs of DEYVI or other elevation to her lipase. Liver enzymes are also normal going against biliary issue. test is negative going against complication. After receiving IV fluids Toradol and Zofran she had no further bouts of vomiting or diarrhea while in the ER. Her vitals have remained stable and her abdomen soft and nonsurgical and therefore she is otherwise safe for discharge. History & Record Review Discussion w/independent historian: Patient and Family Lab Data Attestation: I reviewed the patient's lab results. Labs: Laboratory Results - last 24 hr 08/12/25 22:40 WBC 6.5 RBC 4.32 Hgb 13.4 Hct 40.9 MCV 94.7 MCH 31.0 MCHC 32.8 RDW Std Deviation 43.0 RDW Coeff of Jay 12.5 Plt Count 300 MPV 9.3 Immature Gran % (Auto) 0.200 Neut % (Auto) 63.5 Lymph % (Auto) 27.9 [place] % (Auto) 7.0 Eos % (Auto) 0.8 Baso % (Auto) 0.6 Absolute Neuts (auto) 4.2 Absolute Lymphs (auto) 1.82 Nucleated RBC % 0 Sodium 144 Potassium 3.5 Chloride 106 Carbon Dioxide 26.3 Anion Gap 12 BUN 12 Creatinine 0.71 Estim Creat Clear Calc 76.62 Est GFR (MDRD) Non-Af 125 BUN/Creatinine Ratio 16.5 Glucose 85 Calcium 9.9 Total Bilirubin 0.24 Direct Bilirubin 0.11 AST 18 ALT 10 Alkaline Phosphatase 79 Total Protein 7.0 Albumin 4.4 Globulin 2.6 Lipase 36 Serum , Qual NEGATIVE Discharge Plan Triage Chief Complaint: Abd Pain ED Provider: Felix Regan Dx/Rx/DC Orders Clinical Impression: Nausea vomiting and diarrhea Instructions: ED Gastroenteritis, Viral (Adult) Prescriptions: New ondansetron 4 mg tablet,disintegrating 4 mg PO TID PRN (Reason: nausea and vomiting) Qty: 21 0RF dicyclomine 20 mg tablet 20 mg PO TID PRN (Reason: abdominal pain/spasm) Qty: 21 0RF No Action fluconazole 150 mg tablet 150 mg PO DAILY Qty: 1 0RF Rx Instructions: administer on day 1 of therapy norgestimate-ethinyl estradiol [[place]] 0.25-35 mg-mcg tablet 1 tab PO DAILY miconazole nitrate [Miconazole-7] 2 % cream 1 appful vaginal QHS 7 Days Qty: 45 0RF Primary Care Provider: Mary Cheung Referrals: Mary Cheung MD [Primary Care Provider, Pediatrics] Activity Restrictions/Additional Instructions: Your history and exam is most consistent with a viral stomach infection. This should resolve spontaneously over the next 3 to 7 days. Take the prescribed medication as directed to help control symptoms and keep yourself well-hydrated. Return to the ER should you have any further concerns Print Language: Greenlandic Disposition Disposition: Home, Self Care Discharge Date/Time: 08/12/25 23:38
[2025-08-12] MEDS: Ketorolac 30 MG/ML Syringe IV (23:03)
[2025-08-12] MEDS: 0.9% Normal Saline (1000mL) 1,000 ML 999 ML IV (23:03)
[2025-08-12 23:19] LABS: Internal QC Validated? YES +Cl - CLEAR BKGD
[2025-08-12 23:20] LABS: Pregnancy, Serum, hCG Quali. NEGATIVE Negative
[2025-08-12 23:22] LABS: AST(SGOT) 18 U/L (<=31); Alanine Aminotransfer ALT/SGPT 10 U/L (<=34); Albumin, Serum 4.4 g/dL (3.5-5.0); Alkaline Phosphatase 79 U/L (35-104); Anion Gap 12 (5-15); BUN 12 mg/dL (4-19); BUN/Creat Ratio 16.5 RATIO (10-20); Bilirubin, Direct 0.11 mg/dL (0.00-0.30); Calcium,Total 9.9 mg/dL (7.6-11.0); Carbon Dioxide 26.3 mmol/L (21.0-32.0); Chloride 106 mmol/L (98-108); Estimated Creatinine Clearance 76.62 ml/min (50-250); Globulin 2.6 g/dL (2.2-4.2); Glucose 85 mg/dL (70-99); Lipase 36 U/L (13-75); Potassium 3.5 mmol/L (3.3-5.1)
[2025-08-12 23:35] VITALS: BP 104/69; PULSE 77; RESP 16; TEMP 36.4; O2SAT 99
== END 2025-08-12 23:38 | disposition home or self-care (01) ==
PROVIDERS: Emergency Provider Emergency Medicine; PCP Pediatrics; Visit Provider Emergency Medicine
DX: R11.2 Nausea with vomiting, unspecified (principal); R19.7 Diarrhea, unspecified
CPT/HCPCS: 80048; 80076; 83690; 84703; 85025; 96361; 96374; 96375; 99283; A4216; J2405